=== PATIENT | male | born 1950 | race Caucasian/White ===

== ENCOUNTER → 2017-12-20 | Outpatient (CLI) | payer OTHER ==
[~2017-12-20] MED LIST: ALLOPURINOL300 MG PO; ATORVASTATIN CA10 MG PO; FLONASE; FLUCONAZOL10 MG/1 ML NS; HYDROCHLOROTHIA25 MG PO; MELOXICAM7.5 MG PO; METOPROLOL TART50 MG PO; OXYBUTYNIN CHLOR5 MG PO; TAMSULOSIN HCL0.4 MG PO; VENTOLIN HFA18 GM PO; ZESTRIL20 MG PO; eliquis PO
--- NOTE | 2017-12-20 09:59 | Diagnostic Imaging Report ---
PROCEDURE:X-RAY ABDOMEN - KUB COMPARISON:CT Abdomen/Pelvis 01/24/17. INDICATIONS:CALCULUS OF KIDNEY FINDINGS: Bowel gas partially obscures visualization of the kidneys. There are adjacent 11 and 8 mm calcifications in the right lower pole kidney and a 5 cm calcification in the left upper pole kidney. Possible 4 mm right mid pole stone. Additional bilateral renal stones noted on prior CT are not well visualized on this radiograph. No definite stone overlying the ureters. Calcified phleboliths project over the left pelvis. Splenic parenchymal calcification is noted. There is a non-obstructed bowel-gas pattern. There are no acute osseous abnormalities. CONCLUSION: Bilateral renal calcifications, measuring up to 11 mm in the right lower pole and 5 mm in the left upper pole. Dictated by: JAIME PALENCIA M.D. on 12/20/2017 at 10:07 Electronically approved by: JAIME PALENCIA M.D. on 12/20/2017 at 10:07
== END ==
LOC: RAD 09:23
PROVIDERS: ATTEND Urology
DX: N20.0 Calculus of kidney (principal)
CPT/HCPCS: 74018

== ENCOUNTER → 2018-01-18 | Day surgery (SDC) | payer OTHER ==
[2018-01-17 10:57] LABS: BASOPHILS % 0.4 % (0.0-1.0); EOSINOPHILS # (AUTO) 0.4 (0.0-0.4); EOSINOPHILS % 5.7 % (0.0-6.0); HEMATOCRIT 48.9 % (38.2-49.6); HEMOGLOBIN 15.6 g/dL (14.0-18.0); LYMPHOCYTES # (AUTO) 1.2 (1.0-3.2); LYMPHOCYTES % 16.2 % (18.0-39.1); MEAN CORPUSCULAR HEMOGLOBIN 29.1 pg (28-32); MEAN CORPUSCULAR HGB CONC 31.9 g/dL (31-35); MEAN CORPUSCULAR VOLUME 91.1 fL (81-99); MONOCYTES # (AUTO) 0.6 (0.2-0.8); MONOCYTES % 8.3 % (4.4-11.3); NEUTROPHILS % 69.1 % (38.7-80.0); PLATELET COUNT 159 x10e3/uL (140-360); RED BLOOD COUNT 5.37 x10e6/uL (4.3-5.7); RED CELL DISTRIBUTION WIDTH 13.2 % (11.7-14.4)
[2018-01-17 11:22] LABS: ANION GAP 12.4 mmol/L (8-16); CALCIUM 10.1 mg/dL (8.4-10.2); CREATININE, SERUM 1.49 mg/dL (0.72-1.25); POTASSIUM 4.4 mmol/L (3.5-5.1)
--- NOTE | 2018-01-17 16:02 | Diagnostic Imaging Report ---
EXAMINATION: PA and lateral views of the chest. COMPARISON: None CLINICAL HISTORY: Preop for stones DISCUSSION: Lines/tubes: None. Lungs: The lungs are well inflated and clear. There is no evidence of pneumonia or pulmonary edema. Pleura: There is no pleural effusion or pneumothorax. Heart and mediastinum: Cardiomediastinal silhouette is unremarkable. Pulmonary vasculature is normal. Bones and soft tissues: No acute bony abnormalities. Degenerative changes in the thoracic spine IMPRESSION: No acute cardiopulmonary abnormalities. Signed by: Dr. Tk Zacarias M.D. on 01/17/2018 3:59 PM
[~2018-01-18] MED LIST changes: +BELLADONNA/OPIUM 60 MG SUPP PR ONE; +CEFTRIAXONE SOD 1 GM VIAL ONE; +FENTANYL CITRATE/PF 100MCG/2 ML INJ ONE; +HYDRALAZINE HCL 20 MG/ML VIAL ONE; +IOPAMIDOL 610MG/1ML 300 MG/ML VIAL IV ONE; +LIDOCAINE HCL 2% LOCAL INJ 5 ML SDV VIAL INJ ONE; +MIDAZOLAM HCL 2 MG/2 ML VIAL ONE; +PROPOFOL IV EMULSION 10 MG/ML 20 ML VIAL ONE
--- OUTSIDE RECORDS SUMMARY | 2018-01-18 05:16 | XMS REPORT ---
Author [facility] Address Unknown Phone Unavailable Care Team Providers Care Coconut Jelly Roller Name Role Phone JORDAN RIOS Unavailable Unavailable Problems This patient has no known problems. Allergies, Adverse Reactions, Alerts This patient has no known allergies or adverse reactions. Medications This patient has no known medications. Results Test Description Test Time Test Comments Text Results Atomic Results Result Comments CHEST 2 VIEWS 2018-01-17 15:58:00 [place] [address] Patient Name: KAYLENE PHELAN MR #: [id number] : 1950 Age/Sex: 67/M Req #: [id number] Adm Physician: Ordered by: JORDAN RIOS MD Report #: [id number] Location: OR Room/Bed: Procedure: [id number] DX/CHEST 2 VIEWS Exam Date: 01/17/18 Exam Time: 1105 REPORT STATUS: Signed EXAMINATION: PA and lateral views of the chest. COMPARISON: None CLINICAL HISTORY: Preop for stones DISCUSSION: Lines/tubes: None. Lungs: The lungs are well inflated and clear. There is no evidence of pneumonia or pulmonary edema. Pleura: There is no pleural effusion or pneumothorax. Heart and mediastinum: Cardiomediastinal silhouette is unremarkable. Pulmonary vasculature is normal. Bones and soft tissues: No acute bony abnormalities. Degenerative changes in the thoracic spine IMPRESSION: No acute cardiopulmonary abnormalities. Signed by: Dr. Alistair Zacarias M.D. on 01/17/2018 3:59 PM Dictated By: ALISTAIR ZACARIAS MD 58 Transcribed By: SANDY on 01/17/181558 COPY TO: JORDAN RIOS MD ABDOMEN-1VIEW (KUB) 2017-12-20 10:07:00 [place] [address] Patient Name: KAYLENE PHELAN MR #: [id number] : 1950 Age/Sex: 67/M Req #: [id number] Adm Physician: Ordered by: JORDAN RIOS MD Report #: [id number] Location: [facility] Room/Bed: Procedure: [id number] DX/ABDOMEN-1VIEW (KUB) Exam Date: 12/20/17 Exam Time: 0935 REPORT STATUS: Signed PROCEDURE: X-RAY ABDOMEN - KUB COMPARISON: CT Abdomen/Pelvis 01/24/17. INDICATIONS: CALCULUS OF KIDNEY FINDINGS: Bowel gas partially obscures visualization of the kidneys. There are adjacent 11 and 8 mm calcifications in the right lower pole kidney and a 5 cm calcification in the left upper pole kidney. Possible 4 mm right mid pole stone. Additional bilateral renal stones noted on prior CT are not well visualized on this radiograph. No definite stone overlying the ureters. Calcified phleboliths project over the left pelvis. Splenic parenchymal calcification is noted. There is a non-obstructed bowel-gas pattern. There are no acute osseous abnormalities. CONCLUSION: Bilateral renal calcifications, measuring up to 11 mm in the right lower pole and 5 mm in the left upper pole. Dictated by: JAIME PALENCIA M.D. on 12/20/2017 at 10:07 Electronically approved by: JAIME PALENCIA M.D. on 12/20/2017 at 10:07 Dictated By: JAIME PALENCIA MD 1007 Transcribed By: WADE on 12/20/17 1007 COPY TO: JORDAN RIOS MD CT ABDOMEN/PELVIS WO [place] [address] Patient Name: KAYLENE PHELAN MR #: [id number] : 1950 Age/Sex: 66/M Req #: [id number] Adm Physician: Ordered by: JORDAN RIOS MD Report #: [id number] Location: CT Room/Bed: Procedure: [id number] CT/CT ABDOMEN/PELVIS WO Exam Date: 01/24/17 Exam Time: 0915 REPORT STATUS: Signed PROCEDURE: CT ABDOMEN AND PELVIS WITHOUT CONTRAST COMPARISON: [facility], CT, CT ABDOMEN/PELVIS WO, 08/08/2015, 8:39. INDICATIONS: Adrenal gland neoplasm; renal calculus TECHNIQUE: Stone protocol Volumetric CT abdomen and pelvis. No intravenous or enteric contrast. Multiplanar reformatted images. DLP: 1440.65 FINDINGS: Left lower lobe medial segmental atelectasis. Otherwise, clear lung bases. No pleural effusions. Normal heart size. Liver: 1.7 cm low-attenuation nodule in the left lobe (internal attenuation 4 Hounsfield units) unchanged from 2016. Too small to characterize 7 mm low-attenuation nodule within the peripheral right lobe (image 72, series 3). Otherwise, normal liver. Gallbladder: Normal. No bile duct dilation. Pancreas: Normal Spleen: Coarse parenchymal calcification; otherwise, normal Adrenal glands: 2.5 cm right lipid-rich adenoma (internal attenuation 7 Hounsfield units). Urinary bladder: Decompressed Prostate and seminal vesicles: Normal Right kidney: At least 6 stones measuring between 0.2 and 1.2 x 0.9 cm. Normal renal pelvis and ureter. Left kidney: 2 stones at the superior pole measuring 0.2 and 0.4 cm. Normal renal pelvis and ureter. Exophytic 1.5 cm anterolateral inferior pole cyst (internal attenuation 7.6 Hounsfield units). Bowel: Normal caliber. Normal appendix. Descending and sigmoid colon diverticulosis. Peritoneum: Normal Vasculature: Normal caliber. Mild scattered aortic and iliac artery atherosclerosis. Lymph nodes: Normal Skeleton: Mild multilevel degenerative disc disease and facet arthropathy with suspected bilateral neural foramen stenosis at L4-L5 and questionably L5-S1. Mild degenerative change in the hips. Soft tissues: Large right and moderate left fat-containing inguinal hernias. Otherwise, normal. CONCLUSION: 1. Bilateral nephrolithiasis similar to August 2015. The largest stone at the right inferior pole measure 0.9 x 1.2 cm and on the left 0.4 cm. 2. Stable right adrenal adenoma. 3. Diverticulosis. 4. Left liver cyst, stable. Dictated by: Gema David M.D. on 01/24/2017 at 10:05 Electronically approved by: Gema David M.D. on 01/24/2017 at 10:05 Dictated By: GEMA DAVID MD 1005 Transcribed By: WADE on 01/24/17 1005 COPY TO: JORDAN RIOS MD
--- NOTE | 2018-01-18 06:43 | Diagnostic Imaging Report ---
EXAM: ABDOMEN-1VIEW (KUB), supine INDICATION: Preop for kidney stones. COMPARISON: CT of the abdomen and pelvis without IV contrast January 24, 2017 FINDINGS: LINES/TUBES: None BOWEL PATTERN: No evidence for obstruction. SOFT TISSUES: A conglomerate of stones measuring 1.6 x 0.6 cm projects over the inferior pole of the right renal shadow. An additional 4 mm calcification projects over the interpolar region. The left renal shadow is obscured by bowel content. LUNG BASES: Not included BONES: Degenerative changes of the bilateral hips, right greater than left. IMPRESSION: Bilateral nephrolithiasis better seen by recent CT. Largest stone conglomerate measures 1.6 x 0.6 cm in the inferior pole of the right kidney. Signed by: Dr. Iqra Baptiste M.D. on 01/18/2018 6:40 AM
[2018-01-18 09:00] VITALS: BP 145/98
--- NOTE | 2018-01-19 02:50 | Operative Report ---
DATE OF PROCEDURE: January 18, 2018 PREOPERATIVE DIAGNOSES 1. Bilateral nephrolithiasis. 2. Microhematuria. POSTOPERATIVE DIAGNOSES 1. Bilateral nephrolithiasis. 2. Microhematuria. PROCEDURES PERFORMED 1. Staged left-sided extracorporeal shock wave lithotripsy (separate procedure performed for the left nephrolithiasis). 2. Cystourethroscopy with bilateral ureteral catheterization and retrograde ureteropyelography (separate procedure performed for the microhematuria). 3. Interpretation of retrograde ureteropyelography. 4. Supervision of fluoroscopy. No radiologist present. ANESTHESIA: General. COMPLICATIONS: None. CLINICAL SUMMARY: Erik Maldonado is a 67-year-old man with recurrent urolithiasis. The patient elected to proceed with management. He is aware of risks of bleeding, infection, injury to adjacent structures, need for multiple procedures and he elected to proceed. The patient was noted to have a new atrial fibrillation on preoperative evaluation. He underwent cardiac clearance and has additional cardiac followup planned. He has received medications for this condition and plans to be anticoagulated in several days. OPERATIVE PROCEDURE IN DETAIL: The patient also has a history of potential malignant hyperthermia and was subsequently scheduled and is being performed as the 1st case of the day following purging of the system overnight. Informed consent was verified. Erik Maldonado was properly identified and taken to the operating room and placed on the lithotripsy table in supine position. Anesthesia was uneventfully begun. The patient's 2 left-sided stones were localized with biplanar fluoroscopy. A total of 3000 shocks were delivered with excellent fragmentation. The patient was carefully and gently repositioned in dorsal lithotomy position with all pressure points well padded. His genitalia were prepared and draped in usual sterile fashion. A 22.5-Belarusian cystoscope sheath with a visual obturator in place was atraumatically inserted into the patient's urethra. It was guided into unremarkable distal urethra through a mild stricture at the bulbar region through the prostate bed which was significant for trilobar prostatic hypertrophy that were with an intravesical median lobe and an elevated bladder neck. Panendoscopy of the urinary bladder revealed mild trabeculations, but normally positioned ureteral orifices were identified. There were no tumors. There were no stones. Ureteral catheter was used to cannulate each ureter and retrograde ureteral pyelograms were performed. Interpretation of retrograde ureteropyelography: Contrast was instilled in retrograde fashion bilaterally. There were no tumors. There were no diverticula and no suspicious lesions. The stones that we treated on the left hand side corresponded to stones that were in the upper pole rocio as well as in the upper pole major caliceal region that was really located near the mid pole of the kidney. Unobstructed drainage was observed fluoroscopically bilaterally. The patient's bladder was then drained and cystoscope was withdrawn. Digital rectal examination revealed a large 40-g prostate, smooth, non-fluctuant without any nodules. A belladonna and opium suppository was placed and the patient was uneventfully reversed from anesthesia and taken to recovery room in stable condition. There were no complications during the procedure. He tolerated the procedure well. Plans will be to return the patient to the operating room on an elective basis for a right ESWL. At that point in time, ureteral stenting may be warranted. At some point in time, the patient also needs to have uroflowmetry and bladder ultrasonography for followup of his BPH. Job#: [id number]
== END | disposition home or self-care (01) ==
LOC: OR 05:05
PROVIDERS: ATTEND Urology
DX: N20.0 Calculus of kidney (principal); I10 Essential (primary) hypertension; E66.9 Obesity, unspecified; R31.29 Other microscopic hematuria; R50.9 Fever, unspecified; N40.0 Benign prostatic hyperplasia without lower urinary tract symptoms; I48.91 Unspecified atrial fibrillation; Z01.810 Encounter for preprocedural cardiovascular examination; Z01.812 Encounter for preprocedural laboratory examination; Z01.811 Encounter for preprocedural respiratory examination
CPT/HCPCS: 36415; 50590; 52005; 71046; 74018; 80048; 83970; 84550; 85025; 93005; C1758; J0360; J0696; J2250; Q9967; J2001

== ENCOUNTER → 2018-02-21 | Day surgery (SDC) | payer OTHER ==
[2018-02-20 09:49] LABS: BASOPHILS % 0.5 % (0.0-1.0); EOSINOPHILS # (AUTO) 0.3 (0.0-0.4); HEMATOCRIT 48.9 % (38.2-49.6); HEMOGLOBIN 15.7 g/dL (14.0-18.0); LYMPHOCYTES # (AUTO) 1.1 (1.0-3.2); LYMPHOCYTES % 14.1 % (18.0-39.1); MEAN CORPUSCULAR HEMOGLOBIN 29.1 pg (28-32); MEAN CORPUSCULAR HGB CONC 32.1 g/dL (31-35); MEAN CORPUSCULAR VOLUME 90.6 fL (81-99); MONOCYTES # (AUTO) 0.7 (0.2-0.8); MONOCYTES % 8.4 % (4.4-11.3); NEUTROPHILS # (AUTO) 5.8 (2.1-6.9); NEUTROPHILS % 72.6 % (38.7-80.0); PLATELET COUNT 167 x10e3/uL (140-360); RED CELL DISTRIBUTION WIDTH 13.2 % (11.7-14.4)
[2018-02-20 10:00] LABS: INR 1.05; PROTHROMBIN TIME 14.6 seconds (11.9-14.5)
[2018-02-20 10:01] LABS: PARTIAL THROMBOPLASTIN TIME 31.5 seconds (23.8-35.5)
[2018-02-20 10:08] LABS: ANION GAP 12.8 mmol/L (8-16); CALCIUM 9.4 mg/dL (8.4-10.2); CREATININE, SERUM 1.47 mg/dL (0.72-1.25); POTASSIUM 3.8 mmol/L (3.5-5.1)
[~2018-02-21] VITALS: Ht 188 cm; Wt 127.9 kg
[2018-02-21] VITALS (8 sets, daily range): BP systolic 128–167; BP diastolic 82–120
[~2018-02-21] MED LIST changes: +ALPRAZOLAM 0.5 MG TAB ONE; +ASPIRIN81 MG PO; +BIOTIN PO; -CEFTRIAXONE SOD 1 GM VIAL ONE; +CEFTRIAXONE SOD 1 GM/NS 50 ML 0 ML IV ONE; +DIPHENHYDRAMINE HCL 25 MG CAP ONE; +HEPARIN SOD/SOD CHLORIDE 2,000 ML ONE; +IOPAMIDOL 370 MG/ML 200 ML INFUS..BTL INJ ONE; +LIDOCAINE HCL 2% LOCAL 20 ML VIAL ONE; -LIDOCAINE HCL 2% LOCAL INJ 5 ML SDV VIAL INJ ONE; +METOPROLOL SUCC50 MG PO; -PROPOFOL IV EMULSION 10 MG/ML 20 ML VIAL ONE; +RANEXA500 MG PO; +VERAPAMIL HCL 2.5 MG/ML 2 ML VIAL ONE
--- OUTSIDE RECORDS SUMMARY | 2018-02-21 05:14 | XMS REPORT | Clinical Summary ---
Author Author [facility] Address Unknown Phone Unavailable Care Team Providers Care Tennis [place] Manager Name Role Phone Maida Zhao MD PCP Allergies No Known Allergies Medications End Date Status Medication Sig Dispensed Refills Start Date Active apixaban (ELIQUIS) 5 mg Take by mouth 0 tablet 2 (two) times a day. Active meloxicam (MOBIC) 7.5 mg Take 7.5 mg 0 tablet by mouth daily. Active tamsulosin (FLOMAX) 0.4 Take 0.4 mg 0 mg capsule by mouth daily. Active allopurinol (ZYLOPRIM) Take 300 mg 0 300 MG tablet by mouth every morning. Active hydroCHLOROthiazide Take 25 mg by 0 (HYDRODIURIL) 25 MG mouth every tablet morning. Active lisinopril Take 40 mg by 0 (PRINIVIL,ZESTRIL) 40 mg mouth daily. tablet Active METOPROLOL SUCCINATE ORAL Take 50 mg by 0 mouth every morning. Active atorvastatin (LIPITOR) 10 Take 10 mg by 0 MG tablet mouth every evening. Active fluticasone (FLONASE) 50 2 sprays by 0 mcg/actuation nasal spray Each Nare route daily. Active calcium citrate/vitamin Take by 0 D3 (CALCIUM CITRATE + D mouth. ORAL) Active biotin 1 mg tablet Take 1,000 0 mcg by mouth 3 (three) times a day. Active Problems Not on file Encounters Care Team Description Date Type Specialty Ronny Noel MD 02/16/2018 Hospital Radiology Encounter Ronny Noel MD Preoperative testing (Primary Dx) 02/16/2018 Pre-Admit Pre-Admission Testing Testing Appointment after 02/20/2017 Family History Medical History Relation Name Comments Cancer Father Relation Name Status Comments Father Mother Social History Date Tobacco Use Types Packs/Day Years Used Never Smoker Smokeless Tobacco: Never Used Alcohol Use Drinks/Week oz/Week Comments No Alcohol Habits Answer Date Recorded How often do you have a drink containing alcohol? Never 02/16/2018 How many drinks containing alcohol do you have on Not asked a typical day when you are drinking? How often do you have six or more drinks on one Not asked occasion? Sex Assigned at Date Recorded Not on file Industry Job Start Date Occupation Not on file Not on file Not on file Travel End Travel History Travel Start No recent travel history available. Last Filed Vital Signs Time Taken Vital Sign Reading 02/16/2018 9:48 AM CHIEF OF STAFF Blood Pressure 150/80 02/16/2018 9:48 AM CHIEF OF STAFF Pulse 69 02/16/2018 9:48 AM CHIEF OF STAFF Temperature 36.6 C (97.8 F) - Respiratory Rate - 02/16/2018 9:48 AM CHIEF OF STAFF Oxygen Saturation 97% - Inhaled Oxygen - Concentration 02/16/2018 9:48 AM CHIEF OF STAFF Weight 132 kg (292 lb) 02/16/2018 9:48 AM CHIEF OF STAFF Height 188 cm (6' 2") 02/16/2018 9:48 AM CHIEF OF STAFF Body Mass Index 37.49 Plan of Treatment Health Maintenance Due Date Last Done Comments COLON CANCER SCREENING 07/26/2001 SHINGLES VACCINES (1 of 07/26/2001 2) PNEUMOCOCCAL 07/26/2016 POLYSACCHARIDE VACCINE AGE 65 AND OVER PNEUMOCOCCAL-13 07/26/2016 INFLUENZA VACCINE 10/05/2017 Procedures Comments Procedure Name Priority Date/Time Associated Diagnosis XR ABDOMEN 1 VW Routine 02/16/2018 Preoperative testing 11:35 AM CHIEF OF STAFF ESTIMATED GFR Routine 02/16/2018 11:10 AM CHIEF OF STAFF PARTIAL THROMBOPLASTIN Routine 02/16/2018 Preoperative testing TIME (PTT) 11:10 AM CHIEF OF STAFF PROTHROMBIN TIME WITH INR Routine 02/16/2018 Preoperative testing 11:10 AM CHIEF OF STAFF BASIC METABOLIC PANEL Routine 02/16/2018 Preoperative testing 11:10 AM CHIEF OF STAFF HC COMPLETE BLD COUNT Routine 02/16/2018 Preoperative testing W/AUTO DIFF 11:10 AM CHIEF OF STAFF after 02/20/2017 Results * XR Abdomen 1 Vw (02/16/2018 11:35 AM CHIEF OF STAFF) Narrative Performed At EXAMINATION:XR ABDOMEN 1 VW [facility] CLINICAL HISTORY:Z01.818 Encounter for other preprocedural examination, PREOP COMPARISON:None. IMPRESSION: 1.At least 3 stones at the right inferior pole measuring up to 0.9, 1 and 0.9 cm in maximum diameter. 0.4 cm right mid pole stone. 2.No definitive calcifications over the left kidney. 3.Nonobstructive bowel gas pattern. 4.Multilevel degenerative disc disease. Severe degenerative change in the hips. [facility]-[id number] Procedure Note Hm Interface, Radiology Results Incoming - 02/16/2018 11:59 AM CHIEF OF STAFF EXAMINATION: XR ABDOMEN 1 VW CLINICAL HISTORY: Z01.818 Encounter for other preprocedural examination, PREOP COMPARISON: None. IMPRESSION: 1. At least 3 stones at the right inferior pole measuring up to 0.9, 1 and 0.9 cm in maximum diameter. 0.4 cm right mid pole stone. 2. No definitive calcifications over the left kidney. 3. Nonobstructive bowel gas pattern. 4. Multilevel degenerative disc disease. Severe degenerative change in the hips. [facility]-[id number] Performing Organization Address City/[facility]/Zipcode Phone Number [facility] [address] [place] [address] * Estimated GFR (02/16/2018 11:10 AM CHIEF OF STAFF) Estimated GFR 52 (A) mL/min/1.73 m2 [facility] Comment: [facility] CatergoryUnitsInte rpretation G1 >=90 Normal or high G2 60-89Mildly decreased H2e76-21 Mildly to moderately decreased V7q87-48 Moderately to severely decreased G4 15-29Severely decreased G5 <15Kidney failure The eGFR was calculated using the Chronic Kidney Disease Epidemiology Collaboration (CKD-EPI) equation. Interpretation is based on recommendations of the National Kidney Foundation-Kidney Disease Outcomes Quality Initiative (NKF-KDOQI) published in 2014. Specimen Plasma specimen Performing Organization Address City/[facility]/Zipcode Phone [place] [address] [place] [id number] PATHOLOGY AND GENOMIC MEDICINE [facility] [address] [place] [address] [facility] * Partial thromboplastin time, activated (02/16/2018 11:10 AM CHIEF OF STAFF) PTT 37.7 (H) 23.0 - 36.0 sec [facility] Comment: [facility] PTT therapeutic range for unfractionated heparin is 61.0-112.0 seconds which corresponds to Anti-Xa 0.3-0.7 U/ml. Specimen Blood Performing Organization Address [facility] Phone Number [address] [place] [address] PATHOLOGY AND [facility] MEDICINE [address] * Prothrombin time with INR (02/16/2018 11:10 AM CHIEF OF STAFF) Prothrombin time 15.5 (H) 11.5 - 14.5 sec [facility] INR 1.3 [facility] Comment: [facility] The International Normalized Ratio (INR) is a therapeutic monitoring tool for patients who are stable on oral anticoagulant therapy. An INR of 2.0-3.0 is suggested for deep vein thrombosis/pulmonary embolism. Specimen Blood Performing Organization Address [facility] Phone Number [address] [place] [address] PATHOLOGY AND [facility] MEDICINE [address] * CBC with platelet and differential (02/16/2018 11:10 AM CHIEF OF STAFF) WBC 6.51 4.50 - 11.00 k/uL [facility] RBC 5.20 4.40 - 6.00 m/uL [facility] HGB 15.2 14.0 - 18.0 g/dL [facility] HCT 47.6 41.0 - 51.0 % [facility] MCV 91.5 82.0 - 100.0 fL [facility] MCH 29.2 27.0 - 34.0 pg [facility] MCHC 31.9 31.0 - 37.0 g/dL [facility] RDW - SD 45.2 37.0 - 55.0 fL [facility] MPV 11.1 8.8 - 13.2 fL [facility] Platelet count 160 150 - 400 k/uL [facility] Nucleated RBC 0.00 /100 WBC [facility] Neutrophils 65.7 39.0 - 69.0 % [facility] Lymphocytes 17.7 (L) 25.0 - 45.0 % [facility] Monocytes 9.7 0.0 - 10.0 % [facility] Eosinophils 6.0 (H) 0.0 - 5.0 % [facility] Basophils 0.6 0.0 - 1.0 % [facility] Specimen Blood Performing Organization Address City/[facility] Hospitalcode Phone Number [facility] OF [address] [place] [address] [place] [address] PATHOLOGY AND GENOMIC MEDICINE [address] * Basic metabolic panel (02/16/2018 11:10 AM CHIEF OF STAFF) Sodium 143 135 - 148 mEq/L [facility] Potassium 4.4 3.5 - 5.0 mEq/L [facility] Chloride 102 98 - 112 mEq/L [facility] CO2 32 (H) 24 - 31 mEq/L [facility] Anion gap 9@ANIO 7 - 15 mEq/L [facility] BUN 26 (H) 8 - 23 mg/dL [facility] Creatinine 1.40 (H) 0.70 - 1.20 mg/dL [facility] Glucose 113 (H) 65 - 99 mg/dL [facility] Calcium 9.9 8.8 - 10.2 mg/dL [facility] Specimen Plasma specimen Performing Organization Address City/[facility] Hospitalcode Phone Number [facility] DE[facility] [address] [place] [address] PATHOLOGY AND GENOMIC MEDICINE [address] [place] [phone] [facility] after 02/20/2017 Insurance Payer Benefit Subscriber ID Type Phone Address Plan / Group [facility] xxxxxxxxx HMO/PPO THCARE CHOICE/CHO ICE + Advance Directives Patient has advance care planning documents on file. For more information, gaye e contact: Luis [address] [place] [address]
[2018-02-21 06:59] LABS: INR 0.96; PROTHROMBIN TIME 13.7 seconds (11.9-14.5)
[2018-02-21 10:01] LABS: ALBUMIN 3.6 g/dL (3.5-5.0); ALBUMIN/GLOBULIN RATIO 0.9 (0.8-2.0); ANION GAP 13.8 mmol/L (8-16); CALCIUM 9.7 mg/dL (8.4-10.2); CREATININE, SERUM 1.51 mg/dL (0.72-1.25); POTASSIUM 3.8 mmol/L (3.5-5.1)
--- NOTE | 2018-04-12 23:15 | Operative Report ---
DATE OF PROCEDURE: February 21, 2018 CARDIAC SERVICE LINE BUS CLEANER PROCEDURE NOTE PROCEDURES PERFORMED: 1. Left heart catheterization. 2. Selective coronary angiography. 3. Left ventriculography. 4. Deployment of right wrist transradial band. COMPLICATIONS: None. RECOMMENDATIONS: Aspirin, Eliquis, and Ranexa for ectatic coronary artery disease. DESCRIPTION OF PROCEDURE: Access obtained in the right radial artery. A 5-Brazilian sheath was placed. Diagnostic coronary angiogram revealed very MIRTHA-2 flow, 50% stenosis in the mid left anterior descending artery. LV ejection fraction 50%. LV end-diastolic pressure of 15. No gradient across the aortic valve on pullback. Sheath and guide removed. TR band applied. Patient discharged home same day. Job#: [id number]
== END | disposition home or self-care (01) ==
LOC: OR 05:11
PROVIDERS: ATTEND Urology
DX: I48.1 Persistent atrial fibrillation (principal); I25.118 Atherosclerotic heart disease of native coronary artery with other forms of angina pectoris; R94.39 Abnormal result of other cardiovascular function study; I10 Essential (primary) hypertension; Z01.812 Encounter for preprocedural laboratory examination; Z79.02 Long term (current) use of antithrombotics/antiplatelets; Z79.82 Long term (current) use of aspirin; Z68.35 Body mass index [BMI] 35.0-35.9, adult
CPT/HCPCS: 36415 ×2; 80048; 80053; 80061; 85025; 85610 ×2; 85730 ×2; 93458; C1887; J0360; J2001; J2250; Q9967; J0696

== ENCOUNTER → 2018-03-28 | Day surgery (SDC) | payer OTHER ==
[2018-03-27 12:53] LABS: BASOPHILS # (AUTO) 0.1 (0.0-0.1); BASOPHILS % 0.7 % (0.0-1.0); EOSINOPHILS # (AUTO) 0.3 (0.0-0.4); HEMATOCRIT 46.9 % (38.2-49.6); HEMOGLOBIN 15.3 g/dL (14.0-18.0); LYMPHOCYTES # (AUTO) 1.2 (1.0-3.2); LYMPHOCYTES % 15.9 % (18.0-39.1); MEAN CORPUSCULAR HEMOGLOBIN 29.3 pg (28-32); MEAN CORPUSCULAR HGB CONC 32.6 g/dL (31-35); MEAN CORPUSCULAR VOLUME 89.8 fL (81-99); MONOCYTES # (AUTO) 0.6 (0.2-0.8); NEUTROPHILS # (AUTO) 5.4 (2.1-6.9); NEUTROPHILS % 71.1 % (38.7-80.0); PLATELET COUNT 169 x10e3/uL (140-360); RED BLOOD COUNT 5.22 x10e6/uL (4.3-5.7); RED CELL DISTRIBUTION WIDTH 13.3 % (11.7-14.4)
[2018-03-27 13:04] LABS: INR 1.07; PROTHROMBIN TIME 14.9 seconds (11.9-14.5)
[~2018-03-28] VITALS: Ht 188 cm; Wt 129.3 kg
[~2018-03-28] MED LIST changes: -ALPRAZOLAM 0.5 MG TAB ONE; -BELLADONNA/OPIUM 60 MG SUPP PR ONE; +BENZOCAINE 20% SPR 60 ML CAN ONE; -CEFTRIAXONE SOD 1 GM/NS 50 ML 0 ML IV ONE; -DIPHENHYDRAMINE HCL 25 MG CAP ONE; -HEPARIN SOD/SOD CHLORIDE 2,000 ML ONE; -HYDRALAZINE HCL 20 MG/ML VIAL ONE; -IOPAMIDOL 370 MG/ML 200 ML INFUS..BTL INJ ONE; -IOPAMIDOL 610MG/1ML 300 MG/ML VIAL IV ONE; -LIDOCAINE HCL 2% LOCAL 20 ML VIAL ONE; +LIDOCAINE HCL 2% LOCAL INJ 5 ML SDV VIAL INJ ONE; +PROPOFOL IV EMULSION 10 MG/ML 20 ML VIAL ONE; +SODIUM CHLORIDE 0.9% 1000ML 1,000 ML ONE; -VERAPAMIL HCL 2.5 MG/ML 2 ML VIAL ONE
--- OUTSIDE RECORDS SUMMARY | 2018-03-28 07:24 | XMS REPORT | Continuity of Care Document ---
Author Author [facility] Interface Address Unknown Phone Unavailable Problems Problem Status Onset Date Classification Date Reported Comments Source PREADMIT/WATCHMAN/EP STUDY/ PVI ABLATION Active 03/16/2018 [facility] PERSISTENT ATRIAL FIBRILLATION Active 03/14/2018 [facility] Medications Medication Details Route Status Patient Instructions Ordering Provider Order Date Source Allergies, Adverse Reactions, Alerts Substance Category Reaction Severity Reaction type Status Date Reported Comments Source Immunizations Immunization Date Given Site Status Last Updated Comments Source Results Order Name Results Value Reference Range Date Interpretation Comments Source Pulmonary Vein Mapping CT Pulmonary Vein Mapping CT Chest CTA pulmonary vein mapping, 03/27/2018 at 9:15 AM HISTORY: 67-year-old man with persistent atrial fibrillation. Evaluate the pulmonary veins. TECHNIQUE: Continuous 1.[address] images were obtained through the chest following the intravenous administration of contrast with delayed imaging through the heart. Coronal, sagittal and axial MIP reformatted images were created at the workstation. IV contrast dose: 110 mL Visipaque contrast Total exam DLP: 987.15 mGy-- cm No prior chest CT is available for comparison. FINDINGS: * 4 pulmonary veins are identified, 2 on the right and 2 on the left. Measurements are as follows: Right superior pulmonary vein 18 x 19 mm, right inferior pulmonary vein 17 x 16 mm, left superior pulmonary 25 x 27 mm, left inferior pulmonary vein 20 x 19 mm. * The skin to left superior pulmonary vein distance is approximately 28 cm. * Esophagus comes in closest proximity with the left inferior pulmonary vein. * AP diameter of the left atrium is 49 mm. * No filling defects are identified in the left atrium to suggest the presence of left atrial thrombus. Cardiothoracic ratio is 15.7/28.8 cm. Ascending aorta is ectatic measuring 38 mm. The central pulmonary arteries do not measure enlarged. Calcifications identified in the left anterior descending and left circumflex coronary arteries. No pericardial effusion. There are no pleural effusions. Tiny hiatal hernia. Limited imaging through the upper abdomen shows a 24 mm right adrenal nodule axial image 191; Hounsfield units range from 30s to 40s. Mild nodular thickening of the left adrenal gland measuring up to 7 mm. Circular calcification with internal hypodensity in the top of the spleen axial image 159 measuring 10 mm diameter. A 14 mm water attenuation hypodensity in the dome of the liver image 151, most likely a cyst. No enlarged hilar, mediastinal or axillary lymph nodes. Trachea and central bronchi are clear. Dependent atelectasis in the bilateral lower lobes. Pulmonary nodules as follows of the series 11): * Tiny 2 to 3 mm nodules right middle lobe images 75 and 78 * A 6 mm nodule right lower lobe image 82 * A 5 mm nodule left lower lobe image 137 * 3 to 4 mm nodules left lower lobe images 139, 145 Degenerative changes of the thoracic spine with bulky osteophytes. IMPRESSION: 1. 4 pulmonary veins are identified, 2 on the right and 2 on the left. Measurements are as above. 2. No left atrial thrombus. 3. The skin to the left superior pulmonary vein distance is approximately 28 cm. 4. Mild cardiomegaly. Ectatic ascending aorta measuring 38 mm. Coronary artery calcifications. 5. Tiny hiatal hernia. 6. Bilateral adrenal nodules, larger on the right measuring 24 mm with Hounsfield units in the 30s and 40s.. These are indeterminate. Consider further evaluation with adrenal MR protocol. 7. Scattered bilateral pulmonary nodules ranging in size from 2 to 6 mm. -- According to the Fleischner Society 2017 guidelines for management of pulmonary nodules, a low risk patient with multiple nodules measuring up to 6-8 mm should be followed with a chest CT at 3-6 months, then consider at 18-24 months. For a high risk patient, multiple nodules measuring up to 6-8 mm can be followed with a repeat chest CT at 3-6 months, then at 18-24 months. 03/27/2018 - - Read by: Colleen Salazar MD Dictated Date/time: 03/27/18 09:36 Electronically Signed by: Colleen Salazar MD 03/27/18 09:55 FINAL REPORT [facility] Vital Signs Vital Sign Value Date Comments Source Encounters Location Location Details Encounter Type Encounter Number Reason For Visit Attending Provider ADM Date DC Date Status Source Procedures Procedure Code Date Perfomer Comments Source
--- OUTSIDE RECORDS SUMMARY | 2018-03-28 07:24 | XMS REPORT | Clinical Summary ---
Author Author [facility] Address Unknown Phone Unavailable Care Team Providers Care Spa Consultant Name Role Phone Maida Zhao MD PCP [...] 02/16/2018 Pre-Admit Pre-Admission Testing Testing Appointment after 03/27/2017 Family History Medical History Relation Name Comments [...] Taken Vital Sign Reading 02/16/2018 9:48 AM SPORTS MANAGER Blood Pressure 150/80 02/16/2018 9:48 AM SPORTS MANAGER Pulse 69 02/16/2018 9:48 AM SPORTS MANAGER Temperature 36.6 C (97.8 F) - Respiratory Rate - 02/16/2018 9:48 AM SPORTS MANAGER Oxygen Saturation 97% - Inhaled Oxygen - Concentration 02/16/2018 9:48 AM SPORTS MANAGER Weight 132 kg (292 lb) 02/16/2018 9:48 AM SPORTS MANAGER Height 188 cm (6' 2") 02/16/2018 9:48 AM SPORTS MANAGER Body Mass Index 37.49 Plan of Treatment Health Maintenance Due Date Last Done Comments COLON CANCER SCREENING 07/26/2001 SHINGLES VACCINES (1 of 07/26/2001 2) PNEUMOCOCCAL 07/26/2016 POLYSACCHARIDE VACCINE AGE 65 AND OVER PNEUMOCOCCAL-13 07/26/2016 INFLUENZA VACCINE 10/05/2017 Procedures Comments Procedure Name Priority Date/Time Associated Diagnosis XR ABDOMEN 1 VW Routine 02/16/2018 Preoperative testing 11:35 AM SPORTS MANAGER ESTIMATED GFR Routine 02/16/2018 11:10 AM SPORTS MANAGER PARTIAL THROMBOPLASTIN Routine 02/16/2018 Preoperative testing TIME (PTT) 11:10 AM SPORTS MANAGER PROTHROMBIN TIME WITH INR Routine 02/16/2018 Preoperative testing 11:10 AM SPORTS MANAGER BASIC METABOLIC PANEL Routine 02/16/2018 Preoperative testing 11:10 AM SPORTS MANAGER HC COMPLETE BLD COUNT Routine 02/16/2018 Preoperative testing W/AUTO DIFF 11:10 AM SPORTS MANAGER after 03/27/2017 Results * XR Abdomen 1 Vw (02/16/2018 11:35 AM SPORTS MANAGER) Narrative Performed At EXAMINATION:XR ABDOMEN 1 VW [...] disease. Severe degenerative change in the hips. [facility]-[id number] Procedure Note Hm Interface, Radiology Results Incoming - 02/16/2018 11:59 AM SPORTS MANAGER EXAMINATION: XR ABDOMEN 1 VW CLINICAL HISTORY: [...] disease. Severe degenerative change in the hips. [facility]-[id number] Performing Organization Address City/[facility]/Zipcode Phone Number [facility] [address] [place] [address] * Estimated GFR (02/16/2018 11:10 AM SPORTS MANAGER) Estimated GFR 52 (A) mL/min/1.73 m2 [facility] Comment: [facility] CatergoryUnitsInte rpretation G1 >=90 Normal or high G2 60-89Mildly decreased P2v98-85 Mildly to moderately decreased A8g92-21 Moderately to severely decreased G4 15-29Severely decreased G5 <15Kidney failure The eGFR was calculated using the Chronic Kidney Disease Epidemiology Collaboration (CKD-EPI) equation. Interpretation is based on recommendations of the National Kidney Foundation-Kidney Disease Outcomes Quality Initiative (NKF-KDOQI) published in 2014. Specimen Plasma specimen Performing Organization Address City/[facility]/Zipcode [place] [address] [place] [id number] PATHOLOGY AND GENOMIC MEDICINE [facility] [address] [place] [address] [facility] * Partial thromboplastin time, activated (02/16/2018 11:10 AM SPORTS MANAGER) PTT 37.7 (H) 23.0 - 36.0 sec [facility] Comment: [facility] PTT therapeutic range for unfractionated heparin is 61.0-112.0 seconds which corresponds to Anti-Xa 0.3-0.7 U/ml. Specimen Blood Performing Organization Address [facility] Phone Number [address] [place] [address] PATHOLOGY AND [facility] MEDICINE [address] * Prothrombin time with INR (02/16/2018 11:10 AM SPORTS MANAGER) Prothrombin time 15.5 (H) 11.5 - 14.5 sec [facility] INR 1.3 [facility] Comment: [facility] The International Normalized Ratio (INR) is a therapeutic monitoring tool for patients who are stable on oral anticoagulant therapy. An INR of 2.0-3.0 is suggested for deep vein thrombosis/pulmonary embolism. Specimen Blood Performing Organization Address [facility] Phone Number [address] [place] [address] PATHOLOGY AND [facility] MEDICINE [address] * CBC with platelet and differential (02/16/2018 11:10 AM SPORTS MANAGER) WBC 6.51 4.50 - 11.00 k/uL [facility] RBC 5.20 4.40 - 6.00 m/uL [facility] HGB 15.2 14.0 - 18.0 g/dL [facility] HCT 47.6 41.0 - 51.0 % [facility] MCV 91.5 82.0 - 100.0 fL [facility] MCH 29.2 27.0 - 34.0 pg [facility] MCHC 31.9 31.0 - 37.0 g/dL [facility] RDW - SD 45.2 37.0 - 55.0 fL [facility] MPV 11.1 8.8 - 13.2 fL [facility] Platelet count 160 150 - 400 k/uL [facility] Nucleated RBC 0.00 /100 WBC [facility] Neutrophils 65.7 39.0 - 69.0 % [facility] Lymphocytes 17.7 (L) 25.0 - 45.0 % [facility] Monocytes 9.7 0.0 - 10.0 % [facility] Eosinophils 6.0 (H) 0.0 - 5.0 % [facility] Basophils 0.6 0.0 - 1.0 % [facility] Specimen Blood Performing Organization Address City/[facility] Centercode Phone Number [facility] OF [address] [place] [address] [place] [address] PATHOLOGY AND GENOMIC MEDICINE [address] * Basic metabolic panel (02/16/2018 11:10 AM SPORTS MANAGER) Sodium 143 135 - 148 mEq/L [facility] Potassium 4.4 3.5 - 5.0 mEq/L [facility] Chloride 102 98 - 112 mEq/L [facility] CO2 32 (H) 24 - 31 mEq/L [facility] Anion gap 9@ANIO 7 - 15 mEq/L [facility] BUN 26 (H) 8 - 23 mg/dL [facility] Creatinine 1.40 (H) 0.70 - 1.20 mg/dL [facility] Glucose 113 (H) 65 - 99 mg/dL [facility] Calcium 9.9 8.8 - 10.2 mg/dL [facility] Specimen Plasma specimen Performing Organization Address City/[facility] Cent[facility]ode Phone Number [facility] DE[facility] [address] [place] [address] PATHOLOGY AND GENOMIC MEDICINE [address] [place] [id number] [facility] after 03/27/2017 Insurance Payer Benefit Subscriber ID Type Phone Address Plan / Group [facility] xxxxxxxxx HMO/PPO THCARE CHOICE/CHO ICE + Advance Directives Patient has advance care planning documents on file. For more information, gaye e contact: Luis [address] [place] [address]
[2018-03-28 08:06] VITALS: BP 137/90
[2018-03-28 10:15] VITALS: BP 123/79
== END | disposition home or self-care (01) ==
LOC: CATH LAB 07:21 → EDSTATUS 09:00
PROVIDERS: ATTEND Internal Medicine Interventional Cardiology
DX: I48.1 Persistent atrial fibrillation (principal); I25.10 Atherosclerotic heart disease of native coronary artery without angina pectoris; I10 Essential (primary) hypertension; G47.33 Obstructive sleep apnea (adult) (pediatric); J45.909 Unspecified asthma, uncomplicated; N20.0 Calculus of kidney; Z01.812 Encounter for preprocedural laboratory examination; Z79.02 Long term (current) use of antithrombotics/antiplatelets; Z79.82 Long term (current) use of aspirin; Z68.35 Body mass index [BMI] 35.0-35.9, adult
CPT/HCPCS: 36415; 85025; 85610; 93312; 93320; 93325; J2001; J2250; J2704; J7030

== ENCOUNTER → 2018-05-04 | Outpatient (CLI) | payer OTHER ==
[~2018-05-04] MED LIST changes: -BENZOCAINE 20% SPR 60 ML CAN ONE; -FENTANYL CITRATE/PF 100MCG/2 ML INJ ONE; -LIDOCAINE HCL 2% LOCAL INJ 5 ML SDV VIAL INJ ONE; -MIDAZOLAM HCL 2 MG/2 ML VIAL ONE; -PROPOFOL IV EMULSION 10 MG/ML 20 ML VIAL ONE; -SODIUM CHLORIDE 0.9% 1000ML 1,000 ML ONE
--- NOTE | 2018-05-04 10:43 | Diagnostic Imaging Report ---
Exam: Right knee radiographs-3 views; left knee radiographs-3 views History: Knee pain. Comparison: None. Findings: No evidence of acute fracture, malalignment, or soft tissue abnormality. No evidence of suprapatellar joint effusion. There are moderate bilateral medial compartment predominant tricompartmental degenerative changes with joint space narrowing and bony osteophyte formation. There is bilateral quadriceps and patellar enthesopathy. There are stress-related changes at the bilateral tibial tuberosities. Impression: No acute radiographic abnormality. 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 Signed by: Dr. Liana Freitas MD on 05/04/2018 10:40 AM
--- NOTE | 2018-05-04 11:13 | Diagnostic Imaging Report ---
EXAM: Lumbar spine radiographs-5 views. INDICATION: Low back pain. COMPARISON: KUB 03/06/[address] Abdomen/Pelvis 01/24/17. FINDINGS: BONES: The alignment is within normal limits. No acute displaced fractures. Mild loss of vertebral body height at L5 is unchanged from CT abdomen/pelvis from 01/24/2017. DISCS: Mild degenerative disc changes. JOINTS: Moderate facet degenerative changes at L4-L5 and L5-S1 with likely mild to moderate neural foraminal stenosis. OTHER: A conglomerate of right lower pole renal stones, measuring up to 1.6 cm is similar to that of KUB from 03/06/2018. Atherosclerotic vascular calcifications. IMPRESSION: Mild degenerative disc and moderate facet degenerative changes, most pronounced in the lower lumbar spine with associated neural foraminal stenosis. Multiple right sided renal stones. Signed by: Dr. Liana Freitas MD on 05/04/2018 11:09 AM
--- NOTE | 2018-05-04 15:51 | Diagnostic Imaging Report ---
EXAM: BONE MINERAL DENSITY HISTORY: Bone mineralization evaluation COMPARISON: None DISCUSSION: Evaluation of the left hip and lumbar spine was performed utilizing DEXA Hologic bone densitometer. The study is technically adequate. Left hip femoral neck bone mineral density: 0.94 g/cm2, T-score is 0.1, Z-score is 1.2. Left hip total bone mineral density: 1.12 g/cm2, T-score is 0.6, Z-score is 1.2. Lumbar spine total bone mineral density: 1.43 gm/cm2, T-score is 3.1, Z-score is 3.9. Impression: Bone mineralization by WHO Classification is normal, the fracture risk is not increased. Signed by: Dr. Ascencion Byrd M.D. on 05/04/2018 3:48 PM
== END ==
LOC: DX 09:03
PROVIDERS: ATTEND Internal Medicine
DX: M81.0 Age-related osteoporosis without current pathological fracture (principal); M54.5 Low back pain; M25.562 Pain in left knee; M25.561 Pain in right knee
CPT/HCPCS: 72110; 77080

== ENCOUNTER → 2018-05-23 | Day surgery (SDC) | payer OTHER ==
--- NOTE | 2018-05-22 13:04 | NUR ---
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
[2018-05-22 13:15] LABS: BASOPHILS % 0.7 % (0.0-1.0); EOSINOPHILS # (AUTO) 0.3 (0.0-0.4); EOSINOPHILS % 4.2 % (0.0-6.0); HEMATOCRIT 40.7 % (38.2-49.6); LYMPHOCYTES % 17.6 % (18.0-39.1); MEAN CORPUSCULAR HEMOGLOBIN 29.3 pg (28-32); MEAN CORPUSCULAR HGB CONC 31.9 g/dL (31-35); MEAN CORPUSCULAR VOLUME 91.9 fL (81-99); MONOCYTES # (AUTO) 0.5 (0.2-0.8); MONOCYTES % 8.6 % (4.4-11.3); NEUTROPHILS % 68.4 % (38.7-80.0); PLATELET COUNT 144 x10e3/uL (140-360); RED BLOOD COUNT 4.43 x10e6/uL (4.3-5.7); RED CELL DISTRIBUTION WIDTH 13.9 % (11.7-14.4)
[2018-05-22 13:25] LABS: INR 1.11; PROTHROMBIN TIME 14.8 seconds (11.9-14.5)
[2018-05-22 13:35] LABS: ALBUMIN 3.2 g/dL (3.5-5.0); ALBUMIN/GLOBULIN RATIO 0.9 (0.8-2.0); ANION GAP 10.4 mmol/L (8-16); CALCIUM 8.5 mg/dL (8.4-10.2); CREATININE, SERUM 2.07 mg/dL (0.72-1.25); POTASSIUM 4.4 mmol/L (3.5-5.1)
[~2018-05-23] VITALS: Ht 188 cm; Wt 127.0 kg
[~2018-05-23] MED LIST changes: +BENZOCAINE 20% SPR 60 ML CAN ONE; +CALCIUM CITRATE PO; +CHOLECALCIFEROL PO; +COQ PO; +FENTANYL CITRATE/PF 100MCG/2 ML INJ ONE; +MAGNESIUM PO; +MIDAZOLAM HCL 2 MG/2 ML VIAL ONE; +PROPOFOL IV EMULSION 10 MG/ML 20 ML VIAL ONE; +SODIUM CHLORIDE 0.9% 1000ML 1,000 ML ONE; +ULTIMATE OMEGA PO; +YEAST PO
--- OUTSIDE RECORDS SUMMARY | 2018-05-23 08:43 | XMS REPORT | Clinical Summary ---
Author Author [facility] Address Unknown Phone Unavailable Care Team Providers Care Intern Retail Name Role Phone Maida Zhao MD PCP [...] 02/16/2018 Pre-Admit Pre-Admission Testing Testing Appointment after 05/22/2017 Family History Medical History Relation Name Comments [...] Taken Vital Sign Reading 02/16/2018 9:48 AM ARTIST'S REPRESENTATIVE Blood Pressure 150/80 02/16/2018 9:48 AM ARTIST'S REPRESENTATIVE Pulse 69 02/16/2018 9:48 AM ARTIST'S REPRESENTATIVE Temperature 36.6 C (97.8 F) - Respiratory Rate - 02/16/2018 9:48 AM ARTIST'S REPRESENTATIVE Oxygen Saturation 97% - Inhaled Oxygen - Concentration 02/16/2018 9:48 AM ARTIST'S REPRESENTATIVE Weight 132 kg (292 lb) 02/16/2018 9:48 AM ARTIST'S REPRESENTATIVE Height 188 cm (6' 2") 02/16/2018 9:48 AM ARTIST'S REPRESENTATIVE Body Mass Index 37.49 Plan of Treatment Health Maintenance Due Date Last Done Comments COLON CANCER SCREENING 07/26/2001 SHINGLES VACCINES (#1) 07/26/2001 65+ PNEUMOCOCCAL VACCINE 07/26/2016 (1 of 2 - PCV13) PNEUMOCOCCAL 07/26/2016 POLYSACCHARIDE VACCINE AGE 65 AND OVER INFLUENZA VACCINE 10/05/2017 Procedures Comments Procedure Name Priority Date/Time Associated Diagnosis XR ABDOMEN 1 VW Routine 02/16/2018 Preoperative testing 11:35 AM ARTIST'S REPRESENTATIVE ESTIMATED GFR Routine 02/16/2018 11:10 AM ARTIST'S REPRESENTATIVE PARTIAL THROMBOPLASTIN Routine 02/16/2018 Preoperative testing TIME (PTT) 11:10 AM ARTIST'S REPRESENTATIVE PROTHROMBIN TIME WITH INR Routine 02/16/2018 Preoperative testing 11:10 AM ARTIST'S REPRESENTATIVE BASIC METABOLIC PANEL Routine 02/16/2018 Preoperative testing 11:10 AM ARTIST'S REPRESENTATIVE HC COMPLETE BLD COUNT Routine 02/16/2018 Preoperative testing W/AUTO DIFF 11:10 AM ARTIST'S REPRESENTATIVE after 05/22/2017 Results * XR Abdomen 1 Vw (02/16/2018 11:35 AM ARTIST'S REPRESENTATIVE) Narrative Performed At EXAMINATION:XR ABDOMEN 1 VW [...] disease. Severe degenerative change in the hips. [id number] Procedure Note Hm Interface, Radiology Results Incoming - 02/16/2018 11:59 AM ARTIST'S REPRESENTATIVE EXAMINATION: XR ABDOMEN 1 VW CLINICAL HISTORY: [...] disease. Severe degenerative change in the hips. [facility]-[id number] Performing Organization Address [facility] Cent[facility]ode Phone Number [facility] [address] [place] [address] * Estimated GFR (02/16/2018 11:10 AM ARTIST'S REPRESENTATIVE) Estimated GFR 52 (A) mL/min/1.73 m2 [facility] Comment: [facility] CatergoryUnitsInte rpretation G1 >=90 Normal or high G2 60-89Mildly decreased L3d62-70 Mildly to moderately decreased H9t63-15 Moderately to severely decreased G4 15-29Severely decreased G5 <15Kidney failure The eGFR was calculated using the Chronic Kidney Disease Epidemiology Collaboration (CKD-EPI) equation. Interpretation is based on recommendations of the National Kidney Foundation-Kidney Disease Outcomes Quality Initiative (NKF-KDOQI) published in 2014. Specimen Plasma specimen Performing Organization Address City/[facility]/Zipcode Phone Number [facility] [place] [id number] [place] [address] [place] [address] PATHOLOGY AND GENOMIC MEDICINE [facility] [id number] [place] [address] [place] [address] [facility] * Partial thromboplastin time, activated (02/16/2018 11:10 AM ARTIST'S REPRESENTATIVE) PTT 37.7 (H) 23.0 - 36.0 sec [facility] Comment: [facility] PTT therapeutic range for unfractionated heparin is 61.0-112.0 seconds which corresponds to Anti-Xa 0.3-0.7 U/ml. Specimen Blood Performing Organization Address [facility] Cent[facility]ode Phone Number [address] [place] [address] PATHOLOGY AND GENOMIC MEDICINE [address] * Prothrombin time with INR (02/16/2018 11:10 AM ARTIST'S REPRESENTATIVE) Prothrombin time 15.5 (H) 11.5 - 14.5 sec [facility] INR 1.3 [facility] Comment: [facility] The International Normalized Ratio (INR) is a therapeutic monitoring tool for patients who are stable on oral anticoagulant therapy. An INR of 2.0-3.0 is suggested for deep vein thrombosis/pulmonary embolism. Specimen Blood Performing Organization Address [facility]one Phone Number [address] [place] [address] PATHOLOGY AND GENOMIC MEDICINE [address] * CBC with platelet and differential (02/16/2018 11:10 AM ARTIST'S REPRESENTATIVE) WBC 6.51 4.50 - 11.00 k/uL [facility] RBC 5.20 4.40 - 6.00 m/uL [facility] HGB 15.2 14.0 - 18.0 g/dL [facility] HCT 47.6 41.0 - 51.0 % [facility] MCV 91.5 82.0 - 100.0 fL [facility] MCH 29.2 27.0 - 34.0 pg [facility] MCHC 31.9 31.0 - 37.0 g/dL [facility] RDW - SD 45.2 37.0 - 55.0 fL [facility] MPV 11.1 8.8 - 13.2 fL [facility] Platelet count 160 150 - 400 k/uL [facility] Nucleated RBC 0.00 /100 WBC [facility] Neutrophils 65.7 39.0 - 69.0 % [facility] Lymphocytes 17.7 (L) 25.0 - 45.0 % [facility] Monocytes 9.7 0.0 - 10.0 % [facility] Eosinophils 6.0 (H) 0.0 - 5.0 % [facility] Basophils 0.6 0.0 - 1.0 % [facility] Specimen Blood Performing Organization Address City/[facility] Cent[facility]ode Phone Number [facility] [place] [id number] [place] [address] [place] [address] PATHOLOGY AND GENOMIC MEDICINE [address] * Basic metabolic panel (02/16/2018 11:10 AM ARTIST'S REPRESENTATIVE) Sodium 143 135 - 148 mEq/L [facility] Potassium 4.4 3.5 - 5.0 mEq/L [facility] Chloride 102 98 - 112 mEq/L [facility] CO2 32 (H) 24 - 31 mEq/L [facility] Anion gap 9@ANIO 7 - 15 mEq/L [facility] BUN 26 (H) 8 - 23 mg/dL [facility] Creatinine 1.40 (H) 0.70 - 1.20 mg/dL [facility] Glucose 113 (H) 65 - 99 mg/dL [facility] Calcium 9.9 8.8 - 10.2 mg/dL [facility] Specimen Plasma specimen Performing Organization Address [facility] Centercode Phone Number [facility] DEPARTMENT [address] [place] [address] PATHOLOGY AND GENOMIC MEDICINE [address] Eladia Chou[address] after 05/22/2017 Insurance Payer Benefit Subscriber ID Type Phone Address Plan / Group [facility] xxxxxxxxx HMO/PPO THCARE CHOICE/CHO ICE + Advance Directives Patient has advance care planning documents on file. For more information, pleyolette e contact: Luis Toledo [phone] [place] [address]
--- NOTE | 2018-05-23 09:50 | NUR ---
0950am Received pt in Rm #[address] [facility] .CSI,Cirx Fix.DR Mg. Vascade device rt groin Ox4 and appropriate.Perrla,Resp even and unlabored at 100% on room air.PPx4 PT/DP palpable.Cap refill brisk less 3sec. Skin warm and dry integrity appears adequate. Iv to left hand #20 no s/s infiltration. Abd soft and non tender denies necessity to defecate or voided 350cc clear urine. Family at bedside. Pt verbalizes under standing POC flat till 12 and dc at 3pm. Currently denies sob or chest pain offered po intake tolerated well. Rt vascade device intact without bleeding or hematoma. Side rails up,call light at bedside, bed in low position know precautions of potential bleed at rt groin site. Non noted. POC discussed with written copies dc papers and Dr Mg spoke with family. nicole Addendum: 05/23/18 at 1105 by Danuta Ellison RN erase previous documentation error on patient entree. nicole
--- NOTE | 2018-05-23 10:05 | NUR ---
Patient escorted to Radiology [place] 5. Patient ambulated with steady gait with at bedside. Notified OR for anesthesia to come speak with patient. patient prepped in usual fashion for Transesophageal Echocardiogram.
[2018-05-23 10:15] VITALS: BP 159/97
--- NOTE | 2018-05-23 10:55 | NUR ---
pt requesting specific placement of IV. 20g x1 attempt placed to left AC. PT educated of IV care. Family at bedside. Pt w/ call light at side. SR up x 1 with on lowered side. bed low and locked. - cgf
--- NOTE | 2018-05-23 11:40 | NUR ---
summary of care, see Anesthesia summary for VS: 1100 - pt taken to E3 for EVELINA, Anesthesia Tabby available 1105 - geodetic surveyor technologist to room. Anesthesia time out performed. Hurricaine spray to oral cavity by Tabby. Bite block placed 1114 - Dr Mg to room. Time out taken. pt identified with 2 identifiers 1116 - EVELINA probe in 1122 - EVELINA probe out, oral cavity atraumatic, bite block removed 1129 - pt to phase 1 per tabby, hand off report/care to Domenica MARTINEZ,
[2018-05-23 12:40] VITALS: BP 147/90
== END | disposition home or self-care (01) ==
LOC: CATH LAB 08:40 → EDSTATUS 11:00
PROVIDERS: ATTEND Internal Medicine Interventional Cardiology
DX: I48.1 Persistent atrial fibrillation (principal); I25.10 Atherosclerotic heart disease of native coronary artery without angina pectoris; I12.9 Hypertensive chronic kidney disease with stage 1 through stage 4 chronic kidney disease, or unspecified chronic kidney disease; N18.9 Chronic kidney disease, unspecified; Z01.812 Encounter for preprocedural laboratory examination; Z79.02 Long term (current) use of antithrombotics/antiplatelets; Z79.82 Long term (current) use of aspirin; Z68.36 Body mass index [BMI] 36.0-36.9, adult
CPT/HCPCS: 36415; 80053; 85025; 85610; 93312; 93320; 93325; J2250; J2704; J7030

== ENCOUNTER → 2018-05-26 | Outpatient (CLI) | payer OTHER ==
[~2018-05-26] MED LIST changes: -BENZOCAINE 20% SPR 60 ML CAN ONE; -FENTANYL CITRATE/PF 100MCG/2 ML INJ ONE; -MIDAZOLAM HCL 2 MG/2 ML VIAL ONE; -PROPOFOL IV EMULSION 10 MG/ML 20 ML VIAL ONE; -SODIUM CHLORIDE 0.9% 1000ML 1,000 ML ONE
--- NOTE | 2018-05-26 10:57 | Diagnostic Imaging Report ---
Exam: KUB-3 views Clinical History: Renal calculus Comparison: KUB 03/06/2018. Findings: A conglomerate of stones measuring up to 1.7 cm x 0.7 cm projects over the inferior pole of the right renal shadow. An additional 0.6 cm stone projects over the right lower pole kidney and a 0.4 cm stone projects over the right interpolar region. Bowel gas partially obscures visualization of the left kidney. A density measuring 7 mm overlying the left upper pole kidney may be renal or enteric. No evidence of calcification in the expected course of the ureters. Possible splenic calcification in the left upper quadrant abdomen. There is a nonobstructive bowel gas pattern. No acute osseous abnormality. Impression: Similar appearance of multiple right-sided renal stones. Possible 7 mm stone in the left upper pole kidney. Signed by: Dr. Liana Freitas MD on 05/26/2018 10:54 AM
== END ==
LOC: RAD 09:49
PROVIDERS: ATTEND Urology
DX: N20.0 Calculus of kidney (principal)
CPT/HCPCS: 74018

== ENCOUNTER → 2018-07-12 | Day surgery (SDC) | payer OTHER ==
[2018-07-07 15:59] LABS: BASOPHILS % 0.6 % (0.0-1.0); EOSINOPHILS # (AUTO) 0.3 (0.0-0.4); EOSINOPHILS % 5.1 % (0.0-6.0); HEMATOCRIT 39.8 % (38.2-49.6); HEMOGLOBIN 13.4 g/dL (14.0-18.0); LYMPHOCYTES # (AUTO) 1.3 (1.0-3.2); LYMPHOCYTES % 20.4 % (18.0-39.1); MEAN CORPUSCULAR HEMOGLOBIN 30.1 pg (28-32); MEAN CORPUSCULAR HGB CONC 33.7 g/dL (31-35); MEAN CORPUSCULAR VOLUME 89.4 fL (81-99); MONOCYTES # (AUTO) 0.6 (0.2-0.8); NEUTROPHILS % 63.4 % (38.7-80.0); PLATELET COUNT 162 x10e3/uL (140-360); RED BLOOD COUNT 4.45 x10e6/uL (4.3-5.7); RED CELL DISTRIBUTION WIDTH 13.7 % (11.7-14.4)
[2018-07-07 16:15] LABS: ANION GAP 8.6 mmol/L (8-16); CALCIUM 9.8 mg/dL (8.4-10.2); CREATININE, SERUM 1.94 mg/dL (0.72-1.25); POTASSIUM 3.6 mmol/L (3.5-5.1)
--- NOTE | 2018-07-07 16:41 | Diagnostic Imaging Report ---
Exam: KUB-2 views Clinical History: Renal calculus Comparison: KUB 05/26/2018. CT abdomen/pelvis 01/24/2017. Findings: A conglomerate of stones measuring up to 17 x 7 mm projects over the inferior pole of the right renal shadow. An additional 6 mm stone projects over the right lower pole kidney and a 4 mm stone projects over the right interpolar region. A previously noted 7 mm calcification overlying the left upper pole kidney is not well-visualized. A 4 mm calcification projects over the left upper kidney. No evidence of calcification in the expected course of the ureters. There is a calcification overlying the spleen. There is a nonobstructive bowel gas pattern. No acute osseous abnormality. Impression: Similar appearance of multiple right-sided renal stones. Previously noted 7 mm calcification overlying the left upper kidney is not well visualized. Possible 4 mm left upper pole renal stone. Signed by: Dr. Liana Freitas MD on 07/07/2018 4:38 PM
[~2018-07-12] MED LIST changes: +ACETAMINOPHEN/CODEINE 300MG - 30MG TAB ONE; +CEFTRIAXONE SOD 1 GM/NS 50 ML 50 ML IV ONE; +LIDOCAINE HCL 2% LOCAL INJ 5 ML SDV VIAL INJ ONE; +MIDAZOLAM HCL 2 MG/2 ML VIAL ONE; +PROPOFOL IV EMULSION 10 MG/ML 20 ML VIAL ONE
--- OUTSIDE RECORDS SUMMARY | 2018-07-12 05:10 | XMS REPORT | Clinical Summary ---
Author Author [facility] Organization [facility] Address Unknown Phone Unavailable Care Team Providers Care Manager Lan Name Role Phone Maida Zhao MD PCP [...] 02/16/2018 Pre-Admit Pre-Admission Testing Testing Appointment after 07/11/2017 Family History Medical History Relation Name Comments [...] Taken Vital Sign Reading 02/16/2018 9:48 AM INSPECTOR BOILER Blood Pressure 150/80 02/16/2018 9:48 AM INSPECTOR BOILER Pulse 69 02/16/2018 9:48 AM INSPECTOR BOILER Temperature 36.6 C (97.8 F) - Respiratory Rate - 02/16/2018 9:48 AM INSPECTOR BOILER Oxygen Saturation 97% - Inhaled Oxygen - Concentration 02/16/2018 9:48 AM INSPECTOR BOILER Weight 132 kg (292 lb) 02/16/2018 9:48 AM INSPECTOR BOILER Height 188 cm (6' 2") 02/16/2018 9:48 AM INSPECTOR BOILER Body Mass Index 37.49 Plan of Treatment Health Maintenance Due Date Last Done Comments COLON CANCER SCREENING 07/26/2001 SHINGLES VACCINES (#1) 07/26/2001 65+ PNEUMOCOCCAL VACCINE 07/26/2016 (1 of 2 - PCV13) PNEUMOCOCCAL 07/26/2016 POLYSACCHARIDE VACCINE AGE 65 AND OVER INFLUENZA VACCINE 10/05/2018 Procedures Comments Procedure Name Priority Date/Time Associated Diagnosis XR ABDOMEN 1 VW Routine 02/16/2018 Preoperative testing 11:35 AM INSPECTOR BOILER ESTIMATED GFR Routine 02/16/2018 11:10 AM INSPECTOR BOILER PARTIAL THROMBOPLASTIN Routine 02/16/2018 Preoperative testing TIME (PTT) 11:10 AM INSPECTOR BOILER PROTHROMBIN TIME WITH INR Routine 02/16/2018 Preoperative testing 11:10 AM INSPECTOR BOILER BASIC METABOLIC PANEL Routine 02/16/2018 Preoperative testing 11:10 AM INSPECTOR BOILER HC COMPLETE BLD COUNT Routine 02/16/2018 Preoperative testing W/AUTO DIFF 11:10 AM INSPECTOR BOILER after 07/11/2017 Results * XR Abdomen 1 Vw (02/16/2018 11:35 AM INSPECTOR BOILER) Narrative Performed At EXAMINATION:XR ABDOMEN 1 VW [...] disease. Severe degenerative change in the hips. [id number] Procedure Note Hm Interface, Radiology Results Incoming - 02/16/2018 11:59 AM INSPECTOR BOILER EXAMINATION: XR ABDOMEN 1 VW CLINICAL HISTORY: [...] disease. Severe degenerative change in the hips. [facility]-[id number] Performing Organization Address [facility] Cent[facility]ode Phone Number [facility] [address] [place] [address] * Estimated GFR (02/16/2018 11:10 AM INSPECTOR BOILER) Estimated GFR 52 (A) mL/min/1.73 m2 [facility] Comment: [facility] CatergoryUnitsInte rpretation G1 >=90 Normal or high G2 60-89Mildly decreased U6n18-10 Mildly to moderately decreased F2m14-93 Moderately to severely decreased G4 15-29Severely decreased G5 <15Kidney failure The eGFR was calculated using the Chronic Kidney Disease Epidemiology Collaboration (CKD-EPI) equation. Interpretation is based on recommendations of the National Kidney Foundation-Kidney Disease Outcomes Quality Initiative (NKF-KDOQI) published in 2014. Specimen Plasma specimen Performing Organization Address City/[facility]/Zipcode Phone Number [facility] [place] [id number] [place] [address] [place] [address] PATHOLOGY AND GENOMIC MEDICINE [facility] [id number] [place] [address] [place] [address] [facility] * Partial thromboplastin time, activated (02/16/2018 11:10 AM INSPECTOR BOILER) PTT 37.7 (H) 23.0 - 36.0 sec [facility] Comment: [facility] PTT therapeutic range for unfractionated heparin is 61.0-112.0 seconds which corresponds to Anti-Xa 0.3-0.7 U/ml. Specimen Blood Performing Organization Address [facility] Centercode Phone Number [address] [place] [address] PATHOLOGY AND GENOMIC MEDICINE [address] * Prothrombin time with INR (02/16/2018 11:10 AM INSPECTOR BOILER) Prothrombin time 15.5 (H) 11.5 - 14.[address] [facility] INR 1.3 [facility] Comment: [facility] The International Normalized Ratio (INR) is a therapeutic monitoring tool for patients who are stable on oral anticoagulant therapy. An INR of 2.0-3.0 is suggested for deep vein thrombosis/pulmonary embolism. Specimen Blood Performing Organization Address [facility] Centercomd Phone Number [address] [place] [address] PATHOLOGY AND GENOMIC MEDICINE [address] * CBC with platelet and differential (02/16/2018 11:10 AM INSPECTOR BOILER) WBC 6.51 4.50 - 11.00 k/uL [facility] RBC 5.20 4.40 - 6.00 m/uL [facility] HGB 15.2 14.0 - 18.0 g/dL [facility] HCT 47.6 41.0 - 51.0 % [facility] MCV 91.5 82.0 - 100.[address] [facility] MCH 29.2 27.0 - 34.[address] [facility] MCHC 31.9 31.0 - 37.0 g/dL [facility] RDW - SD 45.2 37.0 - 55.[address] [facility] MPV 11.1 8.8 - 13.[address] [facility] Platelet count 160 150 - 400 k/uL [facility] Nucleated RBC 0.00 /[address] [facility] Neutrophils 65.7 39.0 - 69.0 % [facility] Lymphocytes 17.7 (L) 25.0 - 45.0 % [facility] Monocytes 9.7 0.0 - 10.0 % [facility] Eosinophils 6.0 (H) 0.0 - 5.0 % [facility] Basophils 0.6 0.0 - 1.0 % [facility] Specimen Blood Performing Organization Address City/[facility] [place] [facility] Centercode Phone Number [facility] DE[facility] OF [address] [place] [address] [place] [address] PATHOLOGY AND GENOMIC MEDICINE [address] [place] * Basic metabolic panel (02/16/2018 11:10 AM INSPECTOR BOILER) Sodium 143 135 - 148 mEq/L [facility] Potassium 4.4 3.5 - 5.0 mEq/L [facility] Chloride 102 98 - 112 mEq/L [facility] CO2 32 (H) 24 - 31 mEq/L [facility] Anion gap 9@ANIO 7 - 15 mEq/L [facility] BUN 26 (H) 8 - 23 mg/dL [facility] Creatinine 1.40 (H) 0.70 - 1.20 mg/dL [facility] Glucose 113 (H) 65 - 99 mg/dL [facility] Calcium 9.9 8.8 - 10.2 mg/dL [facility] Specimen Plasma specimen Performing Organization Address [facility] [place] [facility] Centercode Phone Number [facility] DEPARTMENT [address] [place] [address] PATHOLOGY AND GENOMIC MEDICINE [address] Eladia [address]ou[address] after 07/11/2017 Insurance Payer Benefit Subscriber ID Type Phone Address Plan / Group [facility] xxxxxxxxx HMO/PPO THCARE CHOICE/CHO ICE + Advance Directives Patient has advance care planning documents on file. For more information, pleyolette e contact: Luis Toledo [phone] [place] [address]
[2018-07-12 09:30] VITALS: BP 129/90
--- NOTE | 2018-07-19 05:31 | Operative Report ---
DATE OF PROCEDURE: 07/12/2018 SURGEON: Ronny Noel MD PREOPERATIVE DIAGNOSIS: Right nephrolithiasis. POSTOPERATIVE DIAGNOSIS: Right nephrolithiasis. OPERATION PERFORMED: 1. Staged right extracorporeal shockwave lithotripsy. 2. Supervision of fluoroscopy, no radiologist present. ANESTHESIA: General. COMPLICATIONS: None. CLINICAL SUMMARY: Erik Maldonado is a 67-year-old man with recurrent and persistent bilateral nephrolithiasis. He has undergone multiple ESWL procedures and is brought for yet another one. He is aware of the risks of bleeding, infection, injury to adjacent structures, need for additional procedures and elected to proceed. OPERATIVE PROCEDURE IN DETAIL: Informed consent was verified. Erik Maldonado was properly identified, taken to the operating room, placed on the lithotripsy table in supine position. Anesthesia was uneventfully begun. Malignant hyperthermia precautions were taken by the burrer marker axle. The patient's large cluster of 17 mm x 7 mm in size of the lower calyceal stone on the right-hand side was localized with biplanar fluoroscopy. A total of 3000 shocks were delivered at the distal-most portion of the stone. Fragmentation was noted. We also noted a small stone on the contralateral side that is residual or recurrent from prior therapy. The patient was then uneventfully reversed from anesthesia and taken to recovery room in stable condition. There were no complications of the procedure. He tolerated the procedure well. Plans will be to return to the operating room, at which point in time, another ESWL will be performed. This may be performed on the right and perhaps on the left hand side. Ronny Noel MD [place]/[facility] /[id number]
== END | disposition home or self-care (01) ==
LOC: OR 05:00
PROVIDERS: ATTEND Urology
DX: N20.0 Calculus of kidney (principal); J45.909 Unspecified asthma, uncomplicated; G47.33 Obstructive sleep apnea (adult) (pediatric); I48.91 Unspecified atrial fibrillation; I10 Essential (primary) hypertension; Z01.812 Encounter for preprocedural laboratory examination; Z79.82 Long term (current) use of aspirin
CPT/HCPCS: 36415; 50590; 74018; 80048; 85025; J0696; J2001; J2250; J2704

== ENCOUNTER → 2018-07-18 | Outpatient (CLI) | payer OTHER ==
[~2018-07-18] MED LIST changes: -ACETAMINOPHEN/CODEINE 300MG - 30MG TAB ONE; -CEFTRIAXONE SOD 1 GM/NS 50 ML 50 ML IV ONE; -LIDOCAINE HCL 2% LOCAL INJ 5 ML SDV VIAL INJ ONE; -MIDAZOLAM HCL 2 MG/2 ML VIAL ONE; -PROPOFOL IV EMULSION 10 MG/ML 20 ML VIAL ONE
--- NOTE | 2018-07-18 12:14 | Diagnostic Imaging Report ---
Exam: Abdominal film Clinical History: Renal stone Comparison: 07/07/2018 DISCUSSION: Calculi projecting over the right renal shadow are slightly changed in configuration relative to the prior, which may be partially attributable to patient positioning. The largest individual component measures approximately 9 mm. The 4 mm calculus projecting over the left renal shadow is less conspicuous on the current study likely due to overlying bowel contents. No mass effect or organomegaly. Regional skeletal structures intact with advanced right hip degenerative arthrosis. Left upper quadrant calcification is unchanged. Bowel gas pattern is nonobstructive. IMPRESSION: Changing configuration of right renal calculi may be partially attributable to differences in patient positioning. Left renal calculus described on the prior is less conspicuous on the current study as above. Signed by: Dr. Wilmar Garcia M.D. on 07/18/2018 12:11 PM
== END ==
LOC: RAD 10:42
PROVIDERS: ATTEND Urology
DX: N20.0 Calculus of kidney (principal)
CPT/HCPCS: 74018

== ENCOUNTER → 2018-08-16 | Day surgery (SDC) | payer OTHER ==
[2018-08-14 12:28] LABS: BASOPHILS % 0.7 % (0.0-1.0); EOSINOPHILS # (AUTO) 0.3 (0.0-0.4); EOSINOPHILS % 4.6 % (0.0-6.0); HEMOGLOBIN 13.2 g/dL (14.0-18.0); LYMPHOCYTES % 17.9 % (18.0-39.1); MEAN CORPUSCULAR HEMOGLOBIN 30.1 pg (28-32); MEAN CORPUSCULAR VOLUME 91.3 fL (81-99); MONOCYTES # (AUTO) 0.5 (0.2-0.8); MONOCYTES % 9.1 % (4.4-11.3); NEUTROPHILS # (AUTO) 3.8 (2.1-6.9); NEUTROPHILS % 67.3 % (38.7-80.0); PLATELET COUNT 161 x10e3/uL (140-360); RED BLOOD COUNT 4.38 x10e6/uL (4.3-5.7); RED CELL DISTRIBUTION WIDTH 13.7 % (11.7-14.4)
[2018-08-14 12:58] LABS: ANION GAP 8.8 mmol/L (8-16); CALCIUM 9.1 mg/dL (8.4-10.2); CREATININE, SERUM 1.82 mg/dL (0.72-1.25); POTASSIUM 4.8 mmol/L (3.5-5.1)
--- NOTE | 2018-08-14 13:45 | Diagnostic Imaging Report ---
Exam: KUB-2 views Clinical History: Pre admit, history of renal stones. Comparison: KUB 07/18/2018. Findings: Bowel gas partially obscures visualization of the right kidney. A 7 mm calcification projects over the right lower kidney and a 4 mm calcification projects over the right mid kidney. Previously noted left sided renal calcifications are not well visualized. No evidence of calcification overlying the expected course of the ureters. There is a nonobstructive bowel gas pattern. No acute osseous abnormality. Impression: Right-sided renal stones as above. Left-sided renal stones previously described are not well visualized. Signed by: Dr. Liana Freitas MD on 08/14/2018 1:42 PM
[~2018-08-16] MED LIST changes: +CEFTRIAXONE SOD 1 GM/NS 50 ML 50 ML IV ONE; +DEXAMETHASONE SOD PHOS INJ 4 MG/ML VIAL ONE; +FENTANYL CITRATE/PF 100MCG/2 ML INJ ONE; +LIDOCAINE HCL 2% LOCAL INJ 5 ML SDV VIAL INJ ONE; +MIDAZOLAM HCL 2 MG/2 ML VIAL ONE; +ONDANSETRON HCL INJ 2MG/ML 2ML 2 MG/ML VIAL ONE; +PROPOFOL IV EMULSION 10 MG/ML 20 ML VIAL ONE; +PROPOFOL IV EMULSION 10 MG/ML 50 ML VIAL ONE
--- OUTSIDE RECORDS SUMMARY | 2018-08-16 05:22 | XMS REPORT | Clinical Summary ---
Author Author [facility] Organization [facility] Address Unknown Phone Unavailable Care Team Providers Care Biological Plant Operator Name Role Phone Maida Zhao MD PCP [...] 02/16/2018 Pre-Admit Pre-Admission Testing Testing Appointment after 08/15/2017 Family History Medical History Relation Name Comments [...] Taken Vital Sign Reading 02/16/2018 9:48 AM LEAD SPRINKLER Blood Pressure 150/80 02/16/2018 9:48 AM LEAD SPRINKLER Pulse 69 02/16/2018 9:48 AM LEAD SPRINKLER Temperature 36.6 C (97.8 F) - Respiratory Rate - 02/16/2018 9:48 AM LEAD SPRINKLER Oxygen Saturation 97% - Inhaled Oxygen - Concentration 02/16/2018 9:48 AM LEAD SPRINKLER Weight 132 kg (292 lb) 02/16/2018 9:48 AM LEAD SPRINKLER Height 188 cm (6' 2") 02/16/2018 9:48 AM LEAD SPRINKLER Body Mass Index 37.49 Plan of Treatment Health Maintenance Due Date Last Done Comments COLONOSCOPY SCREENING 07/26/2001 SHINGLES VACCINES (#1) 07/26/2001 65+ PNEUMOCOCCAL VACCINE 07/26/2016 (1 of 2 - PCV13) INFLUENZA VACCINE 10/05/2018 Procedures Comments Procedure Name Priority Date/Time Associated Diagnosis XR ABDOMEN 1 VW Routine 02/16/2018 Preoperative testing 11:35 AM LEAD SPRINKLER ESTIMATED GFR Routine 02/16/2018 11:10 AM LEAD SPRINKLER PARTIAL THROMBOPLASTIN Routine 02/16/2018 Preoperative testing TIME (PTT) 11:10 AM LEAD SPRINKLER PROTHROMBIN TIME WITH INR Routine 02/16/2018 Preoperative testing 11:10 AM LEAD SPRINKLER BASIC METABOLIC PANEL Routine 02/16/2018 Preoperative testing 11:10 AM LEAD SPRINKLER HC COMPLETE BLD COUNT Routine 02/16/2018 Preoperative testing W/AUTO DIFF 11:10 AM LEAD SPRINKLER after 08/15/2017 Results * XR Abdomen 1 Vw (02/16/2018 11:35 AM LEAD SPRINKLER) Specimen Narrative Performed At EXAMINATION:XR ABDOMEN 1 VW [...] disease. Severe degenerative change in the hips. [facility]-[id number] Procedure Note Hm Interface, Radiology Results Incoming - 02/16/2018 11:59 AM LEAD SPRINKLER EXAMINATION: XR ABDOMEN 1 VW CLINICAL HISTORY: [...] disease. Severe degenerative change in the hips. [facility]-[id number] Performing Organization Address City/[facility]/Zipcode Phone Number [facility] [address] [place] [address] * Estimated GFR (02/16/2018 11:10 AM LEAD SPRINKLER) Estimated GFR 52 (A) mL/min/1.73 m2 [facility] Comment: [facility] rpretation G1 >=90 Normal or high G2 60-89Mildly decreased [id number] Mildly to moderately decreased Z5x15-16 Moderately to severely decreased G4 15-29Severely decreased G5 <15Kidney failure The eGFR was calculated using the Chronic Kidney Disease Epidemiology Collaboration (CKD-EPI) equation. Interpretation is based on recommendations of the National Kidney Foundation-Kidney Disease Outcomes Quality Initiative (NKF-KDOQI) published in 2014. Specimen Plasma specimen Performing Organization Address [facility]/Zipcode Phone Number [facility] DEPARTMENT [id number] [place] [address] [place] [address] PATHOLOGY AND GENOMIC MEDICINE [address] * Partial thromboplastin time, activated (02/16/2018 11:10 AM LEAD SPRINKLER) Pathologist [facility] PTT 37.7 (H) 23.0 - 36.0 sec [facility] Comment: [facility] CHILDRESS PTT therapeutic range for [facility] unfractionated heparin is 61.0-112.0 seconds which corresponds to Anti-Xa 0.3-0.7 U/ml. Specimen Blood Performing Organization Address [facility] Hospitalcode Phone Number [address] [place] [address] PATHOLOGY AND [facility] MEDICINE [address] * Prothrombin time with INR (02/16/2018 11:10 AM LEAD SPRINKLER) [facility] Prothrombin 15.5 (H) 11.5 - 14.5 sec EXTON time [facility] INR 1.3 [facility] Comment: [facility]ARV[facility] CHILDRESS The International Normalized [facility] Ratio (INR) is a therapeutic monitoring tool for patients who are stable on oral anticoagulant therapy. An INR of 2.0-3.0 is suggested for deep vein thrombosis/pulmonary embolism. Specimen Blood Performing Organization Address [facility] Hospital[facility]oco Phone Number [address] [place] [address] PATHOLOGY AND [facility] MEDICINE [address] * CBC with platelet and differential (02/16/2018 11:10 AM LEAD SPRINKLER) [facility] WBC 6.51 4.50 - 11.00 k/uL [facility] RBC 5.20 4.40 - 6.00 m/uL [facility] HGB 15.2 14.0 - 18.0 g/dL [facility] HCT 47.6 41.0 - 51.0 % [facility] MCV 91.5 82.0 - 100.0 fL [facility] MCH 29.2 27.0 - 34.0 pg [facility] MCHC 31.9 31.0 - 37.0 g/dL [facility] RDW - SD 45.2 37.0 - 55.0 fL [facility] MPV 11.1 8.8 - 13.2 fL [facility] Platelet count 160 150 - 400 k/uL [facility] Nucleated RBC 0.00 /100 WBC [facility] Neutrophils 65.7 39.0 - 69.0 % [facility] Lymphocytes 17.7 (L) 25.0 - 45.0 % [facility] Monocytes 9.7 0.0 - 10.0 % [facility] Eosinophils 6.0 (H) 0.0 - 5.0 % [facility] Basophils 0.6 0.0 - 1.0 % [facility] Specimen Blood Performing Organization Address City/State/Zipcode Phone Number [facility] [place] [id number] [place] [address] [place] [address] PATHOLOGY AND GENOMIC MEDICINE [address] [place] * Basic metabolic panel (02/16/2018 11:10 AM LEAD SPRINKLER) Sodium 143 135 - 148 mEq/L [facility] Potassium 4.4 3.5 - 5.0 mEq/L [facility] Chloride 102 98 - 112 mEq/L [facility] CO2 32 (H) 24 - 31 mEq/L [facility] Anion gap 9@ANIO 7 - 15 mEq/L [facility] BUN 26 (H) 8 - 23 mg/dL [facility] Creatinine 1.40 (H) 0.70 - 1.20 mg/dL [facility] Glucose 113 (H) 65 - 99 mg/dL [facility] Calcium 9.9 8.8 - 10.2 mg/dL [facility] Specimen Plasma specimen Performing Organization Address City/[facility]/Zipcode Phone Number [facility] [place]MENT [place] [id number] [place] [address] [place] [address] PATHOLOGY AND GENOMIC MEDICINE [address] [place] [id number] [facility] after 08/15/2017 Insurance Type Payer Benefit Subscriber ID Effective Phone Address Plan / Dates Group HMO/PPO [facility] xxxxxxxxx [id number] THCARE resent CHOICE/CHO ICE + Advance Directives Patient has advance care planning documents on file. For more information, gaye castillo contact: Luis Toledo [phone] [place] [address]
[2018-08-16 09:00] VITALS: BP 128/86
--- NOTE | 2018-08-16 15:26 | Operative Report ---
DATE OF PROCEDURE: 08/16/2018 SURGEON: Ronny Noel MD PREOPERATIVE DIAGNOSIS: Right nephrolithiasis. POSTOPERATIVE DIAGNOSIS: Right nephrolithiasis. OPERATION PERFORMED: 1. Staged right-sided extracorporeal shock wave lithotripsy. 2. Supervision of fluoroscopy, no radiologist present. ANESTHESIA: General. COMPLICATIONS: None. CLINICAL SUMMARY: Erik Maldonado is a 68-year-old man with large burden recurrent stone disease. The patient brought for staged procedure. He is aware of the risks of bleeding, infection, injury to adjacent structures, need for additional procedures and elected to proceed. OPERATIVE PROCEDURE IN DETAIL: Informed consent was verified. Erik Maldonado was properly identified, taken to the operating room, placed on the lithotripsy table in the supine position. Anesthesia was uneventfully begun. The patient's right nephrolithiasis was localized with biplanar fluoroscopy. A total of 3000 shocks were delivered distributed between the 4 mm midpole stone and 7 mm lower pole stone. Following 3000 shocks, the patient was uneventfully reversed from anesthesia and taken to recovery room in stable condition. There were no complications to the procedure. He tolerated the procedure well. Exclusive postop instructions were given. We will follow the patient up in the office. Ronny Noel MD [place]/[facility] /[id number]
== END | disposition home or self-care (01) ==
LOC: OR 05:09
PROVIDERS: ATTEND Urology
DX: N20.0 Calculus of kidney (principal); G47.33 Obstructive sleep apnea (adult) (pediatric); J45.909 Unspecified asthma, uncomplicated; I10 Essential (primary) hypertension; I48.91 Unspecified atrial fibrillation; Z88.8 Allergy status to other drugs, medicaments and biological substances; Z01.812 Encounter for preprocedural laboratory examination; Z79.82 Long term (current) use of aspirin; Z95.818 Presence of other cardiac implants and grafts
CPT/HCPCS: 36415; 50590; 74018; 80048; 85025; J0696; J1100; J2001; J2250; J2405; J2704 ×2

== ENCOUNTER → 2018-09-26 | Outpatient (CLI) | payer OTHER ==
[~2018-09-26] MED LIST changes: -CEFTRIAXONE SOD 1 GM/NS 50 ML 50 ML IV ONE; -DEXAMETHASONE SOD PHOS INJ 4 MG/ML VIAL ONE; -FENTANYL CITRATE/PF 100MCG/2 ML INJ ONE; -LIDOCAINE HCL 2% LOCAL INJ 5 ML SDV VIAL INJ ONE; -MIDAZOLAM HCL 2 MG/2 ML VIAL ONE; -ONDANSETRON HCL INJ 2MG/ML 2ML 2 MG/ML VIAL ONE; -PROPOFOL IV EMULSION 10 MG/ML 20 ML VIAL ONE; -PROPOFOL IV EMULSION 10 MG/ML 50 ML VIAL ONE
--- NOTE | 2018-09-27 09:06 | Diagnostic Imaging Report ---
Exam: KUB - 2 views Clinical History: Renal calculi Comparison: Multiple prior KUBs, most recently 07/18/2018 Findings: Nonobstructive bowel gas pattern. 4.4 mm calcific density projecting over the midpole of the right kidney. 6.5 mm calcific density projects over the lower pole of the right kidney. No left sided abnormal calcifications. Degenerative changes of the lower lumbar spine. Severe degenerative changes of the right hip joint. Impression: 4.4 mm and 6.5 mm calcific densities projecting over the right kidney may represent renal calculi. Severe right hip degenerative changes. Signed by: Radha Mason MD on 09/27/2018 9:02 AM
== END ==
LOC: RAD 08:50
PROVIDERS: ATTEND Urology
DX: N20.0 Calculus of kidney (principal)

== ENCOUNTER → 2019-02-12 | Outpatient (CLI) | payer OTHER ==
--- NOTE | 2019-02-12 09:02 | Diagnostic Imaging Report ---
CT of the abdomen and pelvis History: Calculus of kidney Comparison: 01/24/2017. Technique: Multidetector CT scanning of the abdomen and pelvis was performed from the level of the lung bases to the inferior pubic ramus, without contrast. DOSE REDUCTION: The examination was performed according to departmental dose-optimization program which includes automated exposure control, adjustment of the mA and/or kV according to patient size and/or use of iterative reconstruction technique. Discussion: There is an unchanged 4 mm nodule in the left lower lobe. Left basilar atelectasis is present. Lack of IV contrast was evaluation of solid and hollow visceral organs. No suspicious hepatic lesions are identified. A 16 mm cyst is present in the left hepatic lobe. The gallbladder is present and nondistended. No radiopaque gallstones are identified. There is no intrahepatic or extrahepatic biliary dilatation. The spleen is within normal limits of size. The right adrenal gland contains a 1.9 cm nodule which measures approximately 20 Hounsfield units and is a probable adenoma. The left adrenal gland is unremarkable. There is no pancreatic ductal dilatation. No peripancreatic inflammatory stranding is identified. The right kidney contains a 2 mm calculus in the upper pole and a 6 mm calculus in the lower pole. Arising from the lower pole of the right kidney is an exophytic cyst which contains some hyperdense material. The cyst currently measures 1.5 cm in diameter. This has decreased in size from examination performed 01/24/2017 and is likely a collapsed cyst. A 2.6 cm cyst arises from the upper pole of the right kidney. No definite left kidney stones identified. A 1.8 cm cyst arises from the mid to lower pole of the left kidney. There is no hydroureteronephrosis bilaterally. The stomach, small, and large bowel are nondistended. There is no evidence of obstruction. No bowel wall thickening is appreciated. The appendix is normal in caliber. Sigmoid diverticulosis is present without evidence of acute diverticulitis. The urinary bladder is within normal limits. The prostate is not enlarged. The abdominal aorta is of normal course and caliber. There are no acute osseous abnormalities. IMPRESSION: 1. Nonobstructing right renal calculi. 2. 1.9 cm right adrenal nodule, probable adenoma. Recommend one-year follow-up for adrenal washout CT. If stable in 1 year no further follow-up imaging is recommended. 3. Diverticulosis without evidence of acute diverticulitis. Signed by: Juan Loja MD on 02/12/2019 8:59 AM
== END ==
LOC: CT 07:50
PROVIDERS: ATTEND Urology
DX: N20.0 Calculus of kidney (principal)
CPT/HCPCS: 74176

== ENCOUNTER → 2019-03-06 | Day surgery (SDC) | payer OTHER ==
[2019-03-05 10:01] LABS: BASOPHILS % 0.7 % (0.0-1.0); EOSINOPHILS # (AUTO) 0.6 (0.0-0.4); EOSINOPHILS % 10.5 % (0.0-6.0); HEMATOCRIT 43.2 % (38.2-49.6); LYMPHOCYTES # (AUTO) 1.1 (1.0-3.2); LYMPHOCYTES % 18.8 % (18.0-39.1); MEAN CORPUSCULAR HEMOGLOBIN 29.7 pg (28-32); MEAN CORPUSCULAR HGB CONC 32.4 g/dL (31-35); MEAN CORPUSCULAR VOLUME 91.7 fL (81-99); MONOCYTES # (AUTO) 0.5 (0.2-0.8); MONOCYTES % 8.2 % (4.4-11.3); NEUTROPHILS # (AUTO) 3.5 (2.1-6.9); NEUTROPHILS % 61.3 % (38.7-80.0); PLATELET COUNT 167 x10e3/uL (140-360); RED BLOOD COUNT 4.71 x10e6/uL (4.3-5.7); RED CELL DISTRIBUTION WIDTH 13.1 % (11.7-14.4)
[2019-03-05 10:20] LABS: ANION GAP 11.2 mmol/L (8-16); CREATININE, SERUM 1.56 mg/dL (0.72-1.25); POTASSIUM 4.2 mmol/L (3.5-5.1)
--- NOTE | 2019-03-05 10:54 | Diagnostic Imaging Report ---
EXAMINATION: CHEST 2 VIEWS INDICATION: Pre-operative COMPARISON: Chest radiograph 01/17/2018 FINDINGS: LINES/TUBES:None LUNGS:The lungs are well-inflated. No focal consolidation or pulmonary edema. PLEURA:No pleural effusion or pneumothorax. MEDIASTINUM:The cardiomediastinal silhouette appears unchanged in size and shape. BONES/SOFT TISSUES:No acute osseous injury. ABDOMEN:No free air under the diaphragm. IMPRESSION: No focal pneumonia or pulmonary edema. Signed by: Radha Mason MD on 03/05/2019 10:51 AM
--- NOTE | 2019-03-05 10:57 | Diagnostic Imaging Report ---
Exam: KUB - 2 views Indication: Renal calculi, preoperative Comparison: KUB of 12/20/2018, CT abdomen and pelvis of 02/12/2019 Findings: 6 mm right lower pole renal calculus and 3 mm right midpole renal calculus. Calcific densities overlying the mid pole and lower pole of the left kidney measure up to 3 mm and more likely represent intraluminal bowel contents then renal calculi given the absence of calculi on the left on the CT of 02/12/2019. Impression: Right renal calculi as above. Calcific densities overlying the left kidney more likely represent bowel contents in the absence of left renal calculi on the recent CT of 02/12/2019. Signed by: Radha Mason MD on 03/05/2019 10:54 AM
[~2019-03-06] MED LIST changes: +ACETAMINOPHEN/CODEINE 300MG - 30MG TAB ONE; +B&O 60MG R/S 60 MG SUPP PR ONE; +CEFTRIAXONE SOD 1 GM/NS 50 ML 50 ML IV ONE; +DEXAMETHASONE SOD PHOS INJ 4 MG/ML VIAL ONE; +FENTANYL CITRATE/PF 100MCG/2 ML INJ ONE; +GENTAMICIN 80MG/NS 100 ML 100 ML IV ONE; +IOPAMIDOL 300MG/ML 50ML INFUS..BTL IV ONE; +LIDOCAINE HCL 2% LOCAL INJ 5 ML SDV VIAL INJ ONE; +MIDAZOLAM HCL 2 MG/2 ML VIAL ONE; +ONDANSETRON HCL INJ 2MG/ML 2ML 2 MG/ML VIAL ONE; +PROPOFOL IV EMULSION 10 MG/ML 20 ML VIAL ONE; +PROPOFOL IV EMULSION 10 MG/ML 50 ML VIAL ONE
[2019-03-06 09:00] VITALS: BP 148/88
--- NOTE | 2019-04-12 03:52 | Operative Report ---
DATE OF PROCEDURE: 03/06/2019 SURGEON: Ronny Noel MD PREOPERATIVE DIAGNOSES: 1. Nephrolithiasis. 2. Obstructive benign prostatic hyperplasia. 3. Microhematuria. POSTOPERATIVE DIAGNOSIS: 1. Nephrolithiasis. 2. Obstructive benign prostatic hyperplasia. 3. Microhematuria. OPERATIONS PERFORMED: 1. Staged right-sided extracorporeal shockwave lithotripsy (separate procedure performed for the right nephrolithiasis). 2. Cystourethroscopy with bilateral ureteral catheterization and retrograde ureteropyelography (separate procedure performed for the microhematuria). 3. Interpretation of retrograde ureteropyelography. 4. Supervision of fluoroscopy, no radiologist present. 5. Cystourethroscopy with implantation of 4 UroLift implants (separate procedure unrelated to the stone surgeries for the BPH). ANESTHESIA: General. COMPLICATIONS: None. CLINICAL SUMMARY: Erik Maldonado is a 68-year-old man with bilateral recurrent nephrolithiasis. He is brought for surgery. The patient also has BPH and desired UroLift implant to improve symptomatology. He is aware of the risks of bleeding, infection, injury to adjacent structures, incontinence, impotence, need for additional procedures and elected to proceed. OPERATIVE PROCEDURE IN DETAIL: Informed consent verified. Erik Maldonado was properly identified, taken to the operating room, and placed on the lithotripsy table in supine position. Anesthesia was uneventfully begun. The patient's right nephrolithiasis was localized with biplanar fluoroscopy. A total of 3000 shocks were delivered with excellent fragmentation. The patient was then carefully gently repositioned in the dorsal lithotomy position with all pressure points well padded. His genitalia were prepared and draped in the usual sterile fashion. The cystoscope sheath with a visual obturator in place was atraumatically inserted into the patient's urethra. It was guided down the unremarkable distal urethra, passed normal sphincteric region through the prostate bed, which was significant for visually obstructing BPH. We entered the patient's bladder and drained it. Panendoscopy revealed trabeculations, but no tumors, no stones, and no diverticula. Normally positioned configured ureteral orifices were identified. The ureteral catheter was used to cannulate each ureter and retrograde ureteral pyelograms were performed. Interpretation of retrograde ureteropyelography, contrast was instilled in retrograde fashion bilaterally. There were filling defects in the right kidney corresponding to the region of the stone. This is attributable to stone fragments and blood clots. Unobstructed drainage was observed bilaterally fluoroscopically. There were no suspicious lesions. The patient's bladder was drained. The cystoscope was withdrawn. The UroLift cystoscope was then placed under direct vision into the patient's bladder. Four UroLift implants were deployed. Two were deployed anterolaterally on either side 1.5 cm distal to the bladder neck and two were deployed anterolaterally at the level of the verumontanum. This resulted in a continuous anterior channel. The patient's bladder was drained. Cystoscope was withdrawn. The belladonna and opium suppository were placed and the patient was uneventfully reversed from anesthesia, taken to recovery room in stable condition. Estimated blood loss was minimal. Explicit postop instructions were given. We will follow the patient up in the office. Upon followup examinations, uroflowmetry and bladder ultrasonography will be performed. MD MARCO ANTONIO Longoria/DAIANA /[id number]
== END | disposition home or self-care (01) ==
LOC: OR 05:20
PROVIDERS: ATTEND Urology
DX: N20.0 Calculus of kidney (principal); N40.1 Benign prostatic hyperplasia with lower urinary tract symptoms; N13.8 Other obstructive and reflux uropathy; R31.29 Other microscopic hematuria; Z01.810 Encounter for preprocedural cardiovascular examination; Z01.812 Encounter for preprocedural laboratory examination; Z01.811 Encounter for preprocedural respiratory examination; Z01.818 Encounter for other preprocedural examination; D35.00 Benign neoplasm of unspecified adrenal gland; Z87.442 Personal history of urinary calculi; G47.33 Obstructive sleep apnea (adult) (pediatric); I10 Essential (primary) hypertension; I48.91 Unspecified atrial fibrillation
CPT/HCPCS: 50590; 52005; 74420; C9740; 36415; 71046; 74018; 80048; 85025; 93005; C1758; J0696; J1100; J1580; J2001; J2250; J2405; J3010; L8699

== ENCOUNTER → 2019-07-26 | Outpatient (CLI) | payer BC ==
[~2019-07-26] MED LIST changes: -ACETAMINOPHEN/CODEINE 300MG - 30MG TAB ONE; -B&O 60MG R/S 60 MG SUPP PR ONE; -CEFTRIAXONE SOD 1 GM/NS 50 ML 50 ML IV ONE; -DEXAMETHASONE SOD PHOS INJ 4 MG/ML VIAL ONE; -FENTANYL CITRATE/PF 100MCG/2 ML INJ ONE; -GENTAMICIN 80MG/NS 100 ML 100 ML IV ONE; -IOPAMIDOL 300MG/ML 50ML INFUS..BTL IV ONE; -LIDOCAINE HCL 2% LOCAL INJ 5 ML SDV VIAL INJ ONE; -MIDAZOLAM HCL 2 MG/2 ML VIAL ONE; -ONDANSETRON HCL INJ 2MG/ML 2ML 2 MG/ML VIAL ONE; -PROPOFOL IV EMULSION 10 MG/ML 20 ML VIAL ONE; -PROPOFOL IV EMULSION 10 MG/ML 50 ML VIAL ONE
--- NOTE | 2019-07-26 11:58 | Diagnostic Imaging Report ---
X-ray abdomen KUB History: Kidney stones Comparison: 12/20/2018 Findings: Multiple calcific densities overlying the right kidney. A few small calcific densities overlying the left kidney with superimposed loops of bowel raising the possibility that this might be bowel contents. The largest calcific density in the right kidney measures 9 mm long by approximately 4.5 mm wide. There is no calculus along the course of the ureters. Incidental findings: Nonobstructive bowel gas pattern. Splenic artery aneurysm with wall calcification. Degenerative disease of the lumbar spine. Severe osteoarthritis of the right hip with a milder osteoarthritis of the left hip. Linear metallic densities overlying the lower pelvis could represent surgical sera. Impression: Right renal calculi with no significant change. Left renal calculi cannot be ruled out. Signed by: Crispin Carvalho MD on 07/26/2019 11:55 AM
== END ==
LOC: RAD 10:46
PROVIDERS: ATTEND Urology
DX: N20.0 Calculus of kidney (principal)
CPT/HCPCS: 74018

== ENCOUNTER → 2019-08-24 | Outpatient (CLI) | payer BC ==
--- NOTE | 2019-08-24 10:36 | Diagnostic Imaging Report ---
EXAM: CT Abdomen and Pelvis WITHOUT intravenous contrast INDICATION: Renal calculi COMPARISON: CT abdomen and pelvis of 02/12/2019, KUB 07/26/2019 TECHNIQUE: Abdomen and pelvis were scanned utilizing a multidetector helical scanner from the lung base to the pubic symphysis without administration of IV contrast. Coronal and sagittal reformations were obtained. IV CONTRAST: None ORAL CONTRAST: None COMPLICATIONS: None RADIATION DOSE: Total DLP: 932 mGy*cm Dose modulation, iterative reconstruction, and/or weight based adjustment of the mA/kV was utilized to reduce the radiation dose to as low as reasonably achievable. FINDINGS: LOWER THORAX: Normal. HEPATOBILIARY: 1.3 cm left hepatic cyst. No other focal liver lesion. Unremarkable gallbladder. SPLEEN: Calcified granuloma in the nonenlarged spleen. PANCREAS: No focal masses or ductal dilatation. ADRENALS: 2.7 cm hypodense right adrenal nodule measures 9HU attenuation and is consistent with a benign adenoma. No further follow-up is necessary. No left adrenal nodule. KIDNEYS/URETERS: 7 mm nonobstructive right lower pole renal calculus and 3 mm nonobstructive right midpole renal calculus. No hydronephrosis. No left renal calculi. Simple attenuation renal cysts measure up to 2.2 cm at the right upper pole and 2.1cm at the left lower pole. PELVIC ORGANS/BLADDER: Decompressed bladder. Radiopaque prostate fiducials. PERITONEUM / RETROPERITONEUM: No free air or fluid. LYMPH NODES: No lymphadenopathy. VESSELS: Mild scattered atherosclerotic calcifications of the nonaneurysmal abdominal aorta and major branches. GI TRACT: No abnormal bowel thickening. No bowel obstruction. Normal appendix. BONES AND SOFT TISSUES: No acute osseous injury. No suspicious lytic or blastic lesions. Mild degenerative changes of the visualized spine IMPRESSION: Nonobstructive right renal calculi measure up to 7mm. No hydronephrosis. Bilateral simple attenuation renal cysts. Signed by: Radha Mason MD on 08/24/2019 10:32 AM
== END ==
LOC: CT 09:35
PROVIDERS: ATTEND Urology
DX: N20.0 Calculus of kidney (principal)
CPT/HCPCS: 74176

== ENCOUNTER → 2019-11-23 | Day surgery (SDC) | payer BC, OTHER ==
[2019-10-29 12:27] LABS: BASOPHILS % 0.7 % (0.0-1.0); EOSINOPHILS # (AUTO) 0.7 (0.0-0.4); EOSINOPHILS % 11.9 % (0.0-6.0); HEMATOCRIT 44.7 % (38.2-49.6); HEMOGLOBIN 14.2 g/dL (14.0-18.0); LYMPHOCYTES # (AUTO) 1.3 (1.0-3.2); LYMPHOCYTES % 21.2 % (18.0-39.1); MEAN CORPUSCULAR HEMOGLOBIN 28.5 pg (28-32); MEAN CORPUSCULAR HGB CONC 31.8 g/dL (31-35); MEAN CORPUSCULAR VOLUME 89.8 fL (81-99); MONOCYTES # (AUTO) 0.6 (0.2-0.8); MONOCYTES % 9.5 % (4.4-11.3); NEUTROPHILS # (AUTO) 3.3 (2.1-6.9); NEUTROPHILS % 56.4 % (38.7-80.0); PLATELET COUNT 160 x10e3/uL (140-360); RED BLOOD COUNT 4.98 x10e6/uL (4.3-5.7); RED CELL DISTRIBUTION WIDTH 13.5 % (11.7-14.4)
[2019-10-29 12:45] LABS: ANION GAP 12.1 mmol/L (8-16); CREATININE, SERUM 1.76 mg/dL (0.72-1.25); POTASSIUM 4.1 mmol/L (3.5-5.1)
--- NOTE | 2019-10-29 13:32 | Diagnostic Imaging Report ---
Abdomen one view (KUB) INDICATION: ^[id number] ^1230 ^PRE OP CLEARANCE Comparison: 08/24/2019. Discussion: Stable left upper quadrant splenic calcification. Nonobstructive bowel gas pattern is noted. Previously identified inferior pole calcification is not confidently visualized. No other suspicious calcification is noted. Severe degenerative change of the right hip joint with [id number] articulation and periarticular sclerosis. Advanced degenerative changes L5-S1 are also noted. IMPRESSION: 1. Nonobstructive bowel gas pattern. 2. Previously identified renal stone is not confidently visualized on this examination. 3. Severe right hip osteoarthritis. Signed by: Vasile Colunga MD on 10/29/2019 1:28 PM
--- NOTE | 2019-11-20 10:00 | Diagnostic Imaging Report ---
Abdomen, one view (KUB) INDICATION: ^[id number] ^0933 ^PRE-OP Comparison: 10/29/2019. Discussion: Overlying bowel gas limits evaluation for renal stones. Demonstration of a 3 mm right interpolar and 6 mm right inferior pole calculi. No definite other radiographic evidence of nephrolithiasis. Postsurgical changes are identified in the pelvis. Splenic calcification is noted in the left upper quadrant. Bowel loops are not dilated. Negative for acute osseous abnormality. Stable severe right hip degenerative changes. IMPRESSION: 1. Stable right interpolar 3 mm and right inferior pole 6 mm renal calculi. No other radiographically apparent calculi are noted. 2. Severe right hip osteoarthritic changes. Signed by: Vasile Colunga MD on 11/20/2019 9:57 AM
[~2019-11-23] MED LIST changes: +B&O 60MG R/S 60 MG SUPP PR ONE; +CEFTRIAXONE SOD 1 GM/NS 50 ML 50 ML IV ONE; +DEXAMETHASONE SOD PHOS INJ 4 MG/ML VIAL ONE; +FENTANYL CITRATE/PF 100MCG/2 ML INJ ONE; +GABAPENTIN300 MG PO; +IOPAMIDOL 300MG/ML 50ML INFUS..BTL IV ONE; +LIDOCAINE HCL 2% JELLY 5 ML TUBE ONE; +LIDOCAINE HCL 2% LOCAL INJ 5 ML SDV VIAL INJ ONE; +MIDAZOLAM HCL 2 MG/2 ML VIAL ONE; +MONTELUKAST SOD10 MG PO; +ONDANSETRON HCL INJ 2MG/ML 2ML 2 MG/ML VIAL ONE; +PROPOFOL IV EMULSION 10 MG/ML 20 ML VIAL ONE; +SEVOFLURANE INHAL SOLN 250 ML PEN BTL ONE
[2019-11-23 08:45] VITALS: BP 131/97
--- NOTE | 2019-12-07 06:55 | Operative Report ---
DATE OF PROCEDURE: 11/23/2019 SURGEON: Ronny Noel MD PREOPERATIVE DIAGNOSES: 1. Right nephrolithiasis. 2. Microhematuria. 3. Obstructive benign prostatic hyperplasia. POSTOPERATIVE DIAGNOSES: 1. Right nephrolithiasis. 2. Microhematuria. 3. Obstructive benign prostatic hyperplasia. OPERATION PERFORMED: Note, these were all staged procedures as part of multi-staged and multi-step process of managing the patient's urolithiasis. 1. Right-sided extracorporeal shockwave lithotripsy (separate procedure performed for the diagnosis of the stone on the right-hand side). 2. Cystourethroscopy with bilateral ureteral catheterization and retrograde ureteropyelography (separate procedure performed for the hematuria and BPH). 3. Interpretation of retrograde ureteropyelography, no radiologist present. 4. Supervision of fluoroscopy, no radiologist present. ANESTHESIA: General. COMPLICATIONS: None. CLINICAL SUMMARY: Erik Maldonado is a recurrent stone former, he is brought for management. He is aware of the risks of bleeding, infection, injury to adjacent structures, need for additional procedures and elected to proceed. OPERATIVE PROCEDURE IN DETAIL: Informed consent verified. Erik Maldonado was properly identified, taken to the operating room, placed on the lithotripsy table in supine position. Anesthesia was uneventfully begun. The patient's right nephrolithiasis was localized with biplanar fluoroscopy. A total of 3000 shocks were delivered with fragmentation noted. The patient was then carefully and gently repositioned in dorsal lithotomy position. All pressure points well padded. His genitalia were prepared and draped in usual sterile fashion. The cystoscope sheath with the visual obturator in place was atraumatically inserted into the patient's urethra, was guided unremarkable urethra through the normal sphincteric region through the prostate bed, which was significant for visually obstructing BPH with a continuous anterior channel from the prior UroLift procedure. The patient did have an extremely elevated median bar that would be very amenable to a transurethral incision of the prostate. Panendoscopy of the urinary bladder revealed at least grade 2 trabeculations throughout, but there were no tumors. There were no stones and there were no suspicious lesions. An 8-Kiswahili catheter was used to cannulate each ureter and retrograde ureteropyelograms were performed. Interpretation of retrograde ureteropyelography contrast was instilled in retrograde fashion bilaterally. The right hand side exhibited filling defects due to stone debris and blood clots from the lithotripsy. Nevertheless, there was no hydronephrosis and unobstructed drainage was observed bilaterally fluoroscopically. The patient's bladder was drained. Cystoscope withdrawn. He was uneventfully reversed from anesthesia and taken to recovery room in stable condition. Explicit postoperative instructions were given including that we will follow the patient up in the office for uroflowmetry and bladder ultrasonography. Ronny MD MARCO ANTONIO Noel/DAIANA /[id number]
== END | disposition home or self-care (01) ==
LOC: OR 05:41
PROVIDERS: ATTEND Urology
DX: N20.0 Calculus of kidney (principal); N40.1 Benign prostatic hyperplasia with lower urinary tract symptoms; N13.8 Other obstructive and reflux uropathy; N32.89 Other specified disorders of bladder; G47.33 Obstructive sleep apnea (adult) (pediatric); M19.90 Unspecified osteoarthritis, unspecified site; M54.5 Low back pain; J45.909 Unspecified asthma, uncomplicated; I10 Essential (primary) hypertension; I48.91 Unspecified atrial fibrillation; K21.9 Gastro-esophageal reflux disease without esophagitis; R00.1 Bradycardia, unspecified; Z88.8 Allergy status to other drugs, medicaments and biological substances; Z01.810 Encounter for preprocedural cardiovascular examination; Z01.812 Encounter for preprocedural laboratory examination; Z01.818 Encounter for other preprocedural examination; Z11.59 Encounter for screening for other viral diseases; Z79.82 Long term (current) use of aspirin
CPT/HCPCS: 36415; 50590; 74018 ×2; 80048; 85025; 93005; C1758; J0696; J1100; J2001 ×2; J2250; J2405; J2704; J3010; Q9967; U0002 ×2

== ENCOUNTER → 2021-04-24 | Outpatient (CLI) | payer BC ==
[~2021-04-24] MED LIST changes: -B&O 60MG R/S 60 MG SUPP PR ONE; -CEFTRIAXONE SOD 1 GM/NS 50 ML 50 ML IV ONE; -DEXAMETHASONE SOD PHOS INJ 4 MG/ML VIAL ONE; -FENTANYL CITRATE/PF 100MCG/2 ML INJ ONE; -IOPAMIDOL 300MG/ML 50ML INFUS..BTL IV ONE; -LIDOCAINE HCL 2% JELLY 5 ML TUBE ONE; -LIDOCAINE HCL 2% LOCAL INJ 5 ML SDV VIAL INJ ONE; -MIDAZOLAM HCL 2 MG/2 ML VIAL ONE; -ONDANSETRON HCL INJ 2MG/ML 2ML 2 MG/ML VIAL ONE; -PROPOFOL IV EMULSION 10 MG/ML 20 ML VIAL ONE; -SEVOFLURANE INHAL SOLN 250 ML PEN BTL ONE
== END ==
LOC: US 07:40
PROVIDERS: ATTEND Urology
DX: N28.1 Cyst of kidney, acquired (principal); Z87.442 Personal history of urinary calculi
CPT/HCPCS: 74018; 76770

== ENCOUNTER → 2022-05-04 | Outpatient (CLI) | payer BC | LOC: CT 15:35 | PROVIDERS: ATTEND Urology | DX: N20.0 Calculus of kidney (principal) | CPT/HCPCS: 74176 ==